=== PATIENT | female | born 1955 | race Caucasian/White ===

== ENCOUNTER → 2017-08-31 | Outpatient (CLI) | payer MEDICARE, MEDICAID ==
[~2017-08-31] MED LIST: DICL50TA6 PO; GABA-488 PO; HYDR-3812 PO; ONDA4TAB8 SL; VALA1000 PO
--- NOTE | 2017-09-01 21:04 | Diagnostic Imaging Report ---
Bilateral screening mammogram 2D views with tomosynthesis. The current study was also evaluated with a Computer Aided Detection (CAD) system. INDICATION: Screening. No current complaints stated on the questionnaire. COMPARISON: 06/10/2016. FINDINGS: The breasts are composed of scattered fibroglandular densities. Scattered punctate calcifications are seen. There is no mass, architectural distortion, or suspicious cluster of calcifications. Allowing for technique and positional differences, no suspicious change is seen. IMPRESSION: No significant change. ACR BI-RADS Category 2: Benign findings. Result letter will be mailed to the patient. Note: At least 10% of breast cancer is not imaged by mammography. Dictated by: Dictated on workstation # [id number]
== END ==
LOC: RAD 15:10
PROVIDERS: ATTEND Family Medicine
DX: Z12.31 Encounter for screening mammogram for malignant neoplasm of breast (principal)
CPT/HCPCS: 77067

== ENCOUNTER → 2017-09-04 | Outpatient (CLI) | payer MEDICARE, MEDICAID ==
--- NOTE | 2017-09-04 11:50 | Diagnostic Imaging Report ---
Ultrasound of the neck. INDICATION: Left submandibular mass. FINDINGS: Adjacent to the left submandibular gland which appears normal, there is a lymph node measuring 2.1 x 1.5 CM on the left side. The preserved fatty hilum is in favor of a benign inflammatory or infectious etiology. No fluid collection or abscess. IMPRESSION: Nonspecific mildly enlarged lymph node with preserved fatty hilum adjacent to the left submandibular gland probably reactive. Dictated by: Dictated on workstation # [id number]
== END ==
LOC: RAD 10:40
PROVIDERS: ATTEND Family Medicine
DX: R59.0 Localized enlarged lymph nodes (principal)
CPT/HCPCS: 76536

== ENCOUNTER → 2018-01-11 | Outpatient (CLI) | payer MEDICARE, MEDICAID ==
[~2018-01-11] MED LIST changes: +ACHD5005 PO; +GADOBUTROL 7.5 MMOL/7.5 ML (GADAVIST) VIAL IV ONE; -HYDR-3812 PO
[2018-01-11 15:12] LABS: HEMOGLOBIN 13.8 G/DL (11.5-16.0); MEAN PLATELET VOLUME 9.3 FL (7.4-10.4); RED BLOOD COUNT 4.13 10^6/uL (4.35-5.85); RED CELL DISTRIBUTION WIDTH 13.5 % (10.0-14.5); WHITE BLOOD COUNT 5.7 10^3/uL (4.3-11.0)
[2018-01-11 15:34] LABS: CREATININE SERUM 0.97 MG/DL (0.60-1.30)
--- NOTE | 2018-01-12 13:12 | Diagnostic Imaging Report ---
CLINICAL INDICATION: Patient has history of Graves' disease. Patient complains of chronic dry eye, double vision, swelling to right eye. Patient has history decompression of both eyes several years ago. EXAM: MRI of the brain and orbits performed without and with 6 cc of Gadavist IV contrast. Sequences include axial DWI, ADC map, axial T2, axial FLAIR, axial T1, axial gradient-echo, coronal T2 thin fat-sat, axial T2 thin, axial T1 thin, coronal T1 thin, axial T1 thin fat-sat post IV contrast, coronal T1 thin fat-sat post IV contrast, right and left sagittal T1 fat-sat thin post IV contrast, axial T1 post IV contrast whole brain, coronal T1 fat-sat post IV contrast whole brain, and sagittal T1 post IV contrast whole brain. COMPARISON: None. FINDINGS: There is no evidence of acute cerebral infarct, intracranial hemorrhage, or gross mass effect. There are a few small focal areas of high T2 signal white matter changes within both cerebral hemispheres, likely representing chronic small vessel ischemic disease. The brain parenchymal volume appears appropriate for patient's age. There is normal salazar-white matter distinction. There is no significant midline shift or herniation. The [place] vascular structures show no gross abnormality as visualized. The pituitary gland, sella, and suprasellar regions are unremarkable as visualized. There is no evidence of hydrocephalus. The basal cisterns are unremarkable. There are orbital decompression surgery changes with resection of the bilateral lateral orbital mckeon. There is also note of medial concavity configuration of the medial orbital mckeon with extension of the bilateral medial rectus muscles and intraorbital fat. These may also be from postop changes or from trauma. There is note of some fatty infiltration of the bilateral extraocular muscles. There is mild prominence of the bilateral medial rectus muscles. There is mild non mass-like enhancement involving the bilateral extraocular muscles. There is prominence of the bilateral intraorbital optic nerve dural sheaths. There is no gross MRI evidence of papilledema, although this would be better evaluated clinically. There is no mass-like enhancement of the orbits or globes. Otherwise, the remainder of the skull and extracranial soft tissues are unremarkable. There is [id number] peripheral mucosal thickening involving both maxillary sinuses, moderate mucosal thickening involving the ethmoid sinus, and mild mucosal thickening involving the frontal sinus and sphenoid sinus. Temporal bones show no significant abnormality. IMPRESSION: 1: There are surgical orbital decompression changes seen bilaterally. 2: There is nonspecific mild enhancement in subtle high T2 signal involving the bilateral extraocular muscles which may be due to inflammatory process. There is also mild enlargement of the bilateral medial extraocular rectus muscles. There is prominent intraorbital fat seen. All of these findings may be related to patient's history of Graves' disease. Given that these findings are bilateral, pseudotumor is suspected to be unlikely. These findings should be compared to prior MRI, if available. 3: Diffuse paranasal sinusitis. 4: Mild age-related brain parenchymal changes. Dictated by: Dictated on workstation # [id number]
== END ==
LOC: RAD 14:56
PROVIDERS: ATTEND Optometrist
DX: H05.241 Constant exophthalmos, right eye (principal); H50.89 Other specified strabismus; H04.121 Dry eye syndrome of right lacrimal gland; J32.8 Other chronic sinusitis; Z86.39 Personal history of other endocrine, nutritional and metabolic disease; Z98.890 Other specified postprocedural states
CPT/HCPCS: 36415; 70553; 82565; 84520; 85027

== ENCOUNTER 2018-03-31 05:33 | Outpatient (CLI) | payer MEDICARE, MEDICAID ==
[~2018-03-31] VITALS: Ht 167.6 cm; Wt 61.7 kg
[~2018-03-31 05:33] MED LIST changes: -GADOBUTROL 7.5 MMOL/7.5 ML (GADAVIST) VIAL IV ONE
[2018-04-01] MEDS ORDERED: ARPZ30T PO (10:56)
[2018-04-01] MEDS ORDERED: CARI350T PO (10:56)
[2018-04-01] MEDS ORDERED: ALPR2TAB6 PO (10:56)
[2018-04-01] MEDS ORDERED: LEVO100T7 PO (10:56)
[2018-04-01] MEDS ORDERED: ASPI-586 PO (10:56)
[2018-04-01] MEDS ORDERED: ARIP10TA10 PO (10:56)
[2018-04-01] MEDS ORDERED: ESCI10TA PO (10:56)
== END 2018-04-01 11:00 ==
LOC: PREOP 05:33
PROVIDERS: ATTEND Specialist
DX: Z01.818 Encounter for other preprocedural examination (principal)

== ENCOUNTER 2018-04-21 05:34 | Outpatient (CLI) | payer MEDICARE, MEDICAID ==
[~2018-04-21] VITALS: Ht 167.6 cm; Wt 61.7 kg
[~2018-04-21 05:34] MED LIST changes: +ALPR2TAB6 PO; +ARIP10TA10 PO; +ARPZ30T PO; +ASPI-586 PO; +CARI350T PO; +ESCI10TA PO; +LEVO100T7 PO
== END 2018-04-21 12:11 ==
LOC: PREOP 05:34
PROVIDERS: ATTEND Specialist
DX: Z01.818 Encounter for other preprocedural examination (principal)

== ENCOUNTER 2018-04-23 05:48 | Day surgery (SDC) | payer MEDICARE, MEDICAID ==
[~2018-04-23] VITALS: Ht 167.6 cm; Wt 61.7 kg
[2018-04-23] MEDS ORDERED: TIMOLOL MALEATE 0.5% 5 ML (TIMOPTIC) BTL OU PRN (06:15)
[2018-04-23] MEDS ORDERED: EPINEPHrine INJECTION 1 MG/ML AMP INJ ONE (06:15)
[2018-04-23] MEDS ORDERED: POVIDONE (BETADINE) OPHTH SOLN 5% 30 ML OP ONE (06:15)
[2018-04-23] MEDS ORDERED: LIDOCAINE PF 1% 2 ML AMP IR PRN (06:15)
[2018-04-23] MEDS ORDERED: VANCOMYCIN/BSS (COMPOUNDED) 10 MG/ML SYR OP ONE (06:15)
[2018-04-23] MEDS: TETRACAINE 0.5% OPHTH SOLN 4 ML BTL (SINGLE DOSE ONLY) OU PRN ×4 (06:18→06:35)
[2018-04-23 06:24] VITALS: BP 121/49
[2018-04-23] MEDS: CYCLOPENTOLATE 1% (CYCLOGYL) 2 ML DROPS OP SCH ×3 (06:27→06:35)
[2018-04-23] MEDS: PHENYLEPHRINE 10% OPHTH (NEO-SYN) 5 ML BTL OU SCH ×3 (06:27→06:35)
--- NOTE | 2018-04-23 06:52 | Ophthalmologist Pre-Op Note ---
Pre-Operative Progress Note H&P Reviewed The H&P was reviewed, patient examined and no changes noted. Date H&P Reviewed: Apr 23, 2018 Time H&P Reviewed: 06:52 Pre-Op Dx Cataract, Left Eye KERI FERNANDEZ MD Apr 23, 2018 06:52
[2018-04-23] MEDS ORDERED: MIDAZOLAM 2 MG/2 ML (VERSED) VIAL ONE (07:08)
--- NOTE | 2018-04-23 07:30 | Ophthalmology Operative Report ---
Cataract removal/placement IOL PREOPERATIVE DIAGNOSIS: Cataract Left Eye POSTOPERATIVE DIAGNOSIS: Cataract Left Eye PROCEDURE: Cataract removal and placement of posterior chamber implant, left eye SURGEON: Roscoe Fernandez ANESTHESIA: Topical with sedation COMPLICATIONS: None ESTIMATED BLOOD LOSS: Minimal DESCRIPTION OF PROCEDURE: After proper informed consent was obtained, the patient, a 63 female, was taken to the Operating Room and the left eye was anesthetized with tetracaine. The left eye was then prepped and draped in the usual manner. A wire lid speculum was placed. A paracentesis was made at the left hand position. Preservative free lidocaine was injected into the anterior chamber followed by viscoelastic. A clear corneal incision was made in the temporal position. A capsulorrhexis was preformed and the central nuclear and cortical material were removed. The posterior capsule was polished and an Sharad 22.5 [id number] IOL was placed into the capsular bag. The residual viscoelastic was aspirated and balanced saline solution was injected into the anterior chamber. 0.1 ml of Vancomycin (1mg/0.1ml ) was injected into the anterior chamber. The wound was checked and found to be water tight. The patient tolerated the procedure well without complications. ROSCOE FERNANDEZ MD Apr 23, 2018 07:30
[2018-04-23 07:40] VITALS: BP 142/57
--- NOTE | 2018-04-23 10:29 | Anesthesia-General Post-Op ---
MAC Patient Condition Mental Status/LOC: Same as Preop Cardiovascular: Satisfactory Nausea/Vomiting: Absent Respiratory: Satisfactory Pain: Controlled Complications: Absent Post Op Complications Complications None Follow Up Care/Instructions Patient Instructions None needed. Anesthesiology Discharge Order Discharge Order Patient is doing well, no complaints, stable vital signs, no apparent adverse anesthesia problems. No complications reported per nursing. KEYLA CHAVEZ CRNA Apr 23, 2018 10:29
== END 2018-04-23 07:40 | disposition home or self-care (01) ==
LOC: SDC 05:48
PROVIDERS: ATTEND Specialist
DX: H26.9 Unspecified cataract (principal); Z87.891 Personal history of nicotine dependence; Z79.82 Long term (current) use of aspirin

== ENCOUNTER → 2018-05-20 | Outpatient (CLI) | payer MEDICARE, MEDICAID ==
--- NOTE | 2018-05-20 10:56 | Diagnostic Imaging Report ---
INDICATION: Osteoporosis screening. Bone marrow analysis of the lumbar spine and both hips was performed. The bone mineral density of lumbar spine from L2-L4 is 0.920 with a T score -2.3. Bone mineral density left femoral neck is 0.682 with T score -2.6. Bone mineral density right femoral neck is 0.778 with a T score -1.9. IMPRESSION: Osteopenia of the lumbar spine and right femoral neck with osteoporosis of the left femoral neck. Dictated by: Dictated on workstation # [id number]
== END ==
LOC: RAD 09:33
PROVIDERS: ATTEND Internal Medicine Endocrinology, Diabetes & Metabolism
DX: Z13.820 Encounter for screening for osteoporosis (principal); M81.0 Age-related osteoporosis without current pathological fracture; M85.88 Other specified disorders of bone density and structure, other site
CPT/HCPCS: 77080

== ENCOUNTER 2019-09-29 14:30 | Outpatient (RCR) | payer MEDICARE, MEDICAID | END 2019-09-29 15:20 | disposition home or self-care (01) | PROVIDERS: ATTEND Internal Medicine Endocrinology, Diabetes & Metabolism | DX: G89.29 Other chronic pain (principal); M54.9 Dorsalgia, unspecified; M81.0 Age-related osteoporosis without current pathological fracture; R29.898 Other symptoms and signs involving the musculoskeletal system ==

== ENCOUNTER → 2019-10-10 | Outpatient (CLI) | payer MEDICARE, MEDICAID ==
--- NOTE | 2019-10-10 15:02 | Diagnostic Imaging Report ---
INDICATION: Left hip pain. COMPARISON: None. FINDINGS: Three views of the sacrum and sacroiliac joint spaces were obtained and show no fractures, dislocations, or other acute bony abnormalities. Joint spaces are appropriate. Note is made however of sclerotic change to the inferior margins of the left sacrum and iliac at the SI joint on the left. This is best visualized on the oblique view. There may be minimal or early sclerotic changes of the right iliac bone as well. These findings were present on CT pelvis dated 06/17/2016. IMPRESSION: 1. Findings suggestive of bilateral sacroiliitis, left greater than right. 2. No evidence of acute fracture or dislocation. Dictated by: Dictated on workstation # [id number]
--- NOTE | 2019-10-10 15:04 | Diagnostic Imaging Report ---
INDICATION: Left hip pain. COMPARISON: None. FINDINGS: Two radiographic views of the left hip were obtained and show no evidence of acute fracture or dislocation. No unexpected radiopaque foreign bodies are identified. The visualized pelvic osseous structures and the SI joints demonstrate no acute fracture or dislocation. There is no bone destruction or radiopaque foreign body. The surrounding soft tissue structures are unremarkable. IMPRESSION: No acute fracture or dislocation in the left hip. Dictated by: Dictated on workstation # [id number]
--- NOTE | 2019-10-11 10:46 | Diagnostic Imaging Report ---
Digital mammogram. Bilateral screening. This study was compared to the prior exams of 08/31/2017, 06/10/2016 and 10/25/2013. At this time there are no current complaints. The current study was also evaluated with a Computer Aided Detection (CAD) system. FINDINGS: The fibroglandular tissue in both breasts is heterogeneously dense. This does limit the sensitivity of this exam. Overall, there does not appear to have been any significant change when compared to the prior study. No primary or secondary sign of malignancy is noted. IMPRESSION: There is no radiographic evidence for malignancy. ACR BI-RADS Category 1: Negative. Result letter will be mailed to the patient. Note: At least 10% of breast cancer is not imaged by mammography. Dictated by: Dictated on workstation # [id number]
== END ==
LOC: RAD 13:32
PROVIDERS: ATTEND Family Medicine
DX: Z12.31 Encounter for screening mammogram for malignant neoplasm of breast (principal); M25.552 Pain in left hip; M53.3 Sacrococcygeal disorders, not elsewhere classified
CPT/HCPCS: 72202; 73502; 77067

== ENCOUNTER → 2019-12-09 | Outpatient (CLI) | payer MEDICAID, OTHER ==
--- NOTE | 2019-12-09 17:10 | Diagnostic Imaging Report ---
PROCEDURE: MRI lumbar spine without contrast. TECHNIQUE: Multiplanar, multisequence MRI of the lumbar spine was performed without contrast. INDICATION: Chronic low back pain. COMPARISON: CT abdomen and pelvis on 06/17/2016. FINDINGS: 5 lumbar type vertebral bodies are visualized with the last well-formed disc space designated L5-S1. No acute fracture or dislocation is seen in the lumbar spine. There is left convexity curvature of the lumbar spine centered at the L2 level. Vertebral body heights are well-maintained. Endplate degenerative changes are present at L1-L2 and L2-L3. The conus terminates at the T12-L1 level. No masses are seen associated with the conus or nerve roots of the cauda equina. No epidural collections are identified. Multilevel degenerative changes are seen in the lumbar spine with disc bulges, facet hypertrophy, and buckling of the ligamentum flavum. T12-L1: No significant spinal canal or foraminal stenosis. L1-L2: Broad-based disc bulge, facet hypertrophy, and buckling of ligamentum flavum results in no significant spinal canal narrowing and moderate right and no left foraminal stenosis. L2-L3: Disc desiccation with broad-based disc bulge, facet hypertrophy, and buckling of ligamentum flavum results in moderate to severe right and no left foraminal stenosis and no significant spinal canal stenosis. L3-L4: Broad-based disc bulge, facet hypertrophy, and buckling of ligamentum flavum results in mild to moderate spinal canal stenosis and moderate bilateral foraminal stenosis. L4-L5: Broad-based disc bulge, facet hypertrophy, and buckling of the ligamentum flavum results in no significant spinal canal stenosis and moderate to severe left and mild right foraminal stenosis. L5-S1: Broad-based disc bulge, facet hypertrophy, and buckling of the ligamentum flavum results in no significant spinal canal stenosis and mild right and moderate left foraminal stenosis. Paravertebral soft tissues are unremarkable. IMPRESSION: 1. No acute fracture or dislocation in the lumbar spine. 2. Multilevel degenerative changes in the lumbar spine, greatest at L3-L4. Dictated by: Dictated on workstation # [id number]
== END ==
LOC: RAD 13:52
PROVIDERS: ATTEND Physician Assistant
DX: M47.816 Spondylosis without myelopathy or radiculopathy, lumbar region (principal)
CPT/HCPCS: 72148

== ENCOUNTER → 2020-01-05 | Outpatient (CLI) | payer MEDICARE ==
--- NOTE | 2020-01-05 14:49 | Diagnostic Imaging Report ---
CLINICAL INDICATION: Right eye is bulging out. Patient has history of Graves' disease. Planning on surgery on this right eye. EXAM: CT scan of the orbits performed without IV contrast with coronal and sagittal reformatted images. COMPARISON: None. FINDINGS: There is slight ill-defined and asymmetry appearance of the extraocular muscles bilaterally with the lateral rectus muscles being the smallest. The tendons are relatively spared. There is no significant masslike enhancement. There is prominence of the retro-bulbar and regina-orbital fat with associated bilateral exophthalmos. Besides the orbital fat, there is no other space-occupying mass within the retro-bulbar region. Limited visualization of intracranial structures are unremarkable. There is mild mucosal thickening involving both maxillary sinuses. There is medial concavity of the medial orbital mckeon. IMPRESSION: 1: There is ill-defined and asymmetric appearance of the bilateral extraocular muscles with the lateral rectus muscles being the smallest. There is prominence of the intraorbital and periorbital fat with exophthalmos noted. Given patient's history, this is most consistent with thyroid ophthalmopathy. 2: Mild paranasal sinus disease. Dictated by: Dictated on workstation # [id number]
== END ==
LOC: RAD 13:42
DX: H05.89 Other disorders of orbit (principal); J32.8 Other chronic sinusitis
CPT/HCPCS: 70480

== ENCOUNTER → 2020-05-22 | Outpatient (CLI) | payer MEDICARE, MEDICAID ==
[~2020-05-22] MED LIST changes: -VALA1000 PO; +VALA10007 PO
--- NOTE | 2020-05-22 14:28 | Diagnostic Imaging Report ---
INDICATION: 65-year-old female, postmenopausal. Screening for osteoporosis. COMPARISON: May 20, 2018. FINDINGS: AP Spine L1-L4: [BMD (g/cm2): 0.829] [T-Score: -3.1] [Z-Score: -1.2] [BMD Previous: 0.920] [BMD % Change: -9.9] LT Hip Neck: [BMD (g/cm2): 0.652] [T-Score: -2.8] [Z-Score: -1.1] LT Hip Total: [BMD (g/cm2):0.635] [T-Score:-3.0] [Z-Score: -1.5] [BMD Previous: 0.660] [BMD % Change: -3.8] RT Hip Neck: [BMD (g/cm2):0.745] [T-Score:-2.1] [Z-Score:-0.4] RT Hip Total: [BMD (g/cm2):0.659] [T-score:-2.8] [Z-Score:-1.3] [BMD Previous:0.680] [BMD % Change:-3.1] *Indicates significant change from prior examination based on 95% confidence level. World Health Organization criteria for BMD interpretation classify patients as Normal (T-score at or above -1.0), Osteopenic (T-score between -1.0 and -2.5) or Osteoporotic (T-score at or below -2.5). LIMITATIONS AND MODIFICATION: None. IMPRESSION: 1. Osteoporosis. 2. No significant change in bone mineral density since prior examination. 3. See below National Osteoporosis Foundation guidelines on when to potentially initiate pharmacologic therapy. Based on the National Osteoporosis Foundation Guidelines, pharmacologic treatment should be initiated in any of the following, unless clinical conditions suggest otherwise: * Any patient with prior fragility fracture of the hip or vertebrae. A spine fracture indicates 5X risk for subsequent spine fracture and 2X risk for subsequent hip fracture. * Osteoporosis (T-score <-2.5). * Postmenopausal women and men age 50 and older with low bone mass/osteopenia (T-score between -1.0 and -2.5) by DXA and 10-year major osteoporotic fracture greater than 20% or a 10-year probability of hip fracture greater than 3%. These fracture risks are supplied above in the FRAX score, if applicable. * Clinician judgement and/or patient preferences may indicate treatment for people with 10-year fracture probabilities above or below these levels. Dictated by: Dictated on workstation # [id number]
== END ==
LOC: RAD 10:13
PROVIDERS: ATTEND Internal Medicine Endocrinology, Diabetes & Metabolism
DX: Z13.820 Encounter for screening for osteoporosis (principal); M81.0 Age-related osteoporosis without current pathological fracture; Z78.0 Asymptomatic menopausal state
CPT/HCPCS: 77080

== ENCOUNTER 2020-06-05 05:53 | Outpatient (RCR) | payer MEDICARE, MEDICAID ==
[~2020-06-05] VITALS: Ht 172 cm; Wt 61.3 kg
== END 2020-06-05 10:49 | disposition home or self-care (01) ==
LOC: PREOP 05:53
PROVIDERS: ATTEND Specialist
DX: Z01.818 Encounter for other preprocedural examination (principal)

== ENCOUNTER 2020-06-08 06:33 | Day surgery (SDC) | payer MEDICARE, MEDICAID ==
[~2020-06-08] VITALS: Ht 172 cm; Wt 61.3 kg
--- OUTSIDE RECORDS SUMMARY | 2020-06-08 06:37 | XMS REPORT | Clinical Summary ---
Author Author [facility] Organization [facility] Address Unknown Phone Unavailable Care Team Providers Care Billet Header Name Role Phone Huber Velez PCP Allergies Comments Active Allergy Reactions Severity Noted Date Swelling in wrists Prednisone 02/10/2019 Medications End Date Status Medication Sig Dispensed Refills Start Date Active ARIPiprazole (ABILIFY) 30 Take 40 mg by 0 MG tablet mouth daily. Active escitalopram oxalate Take 20 mg by 0 (LEXAPRO) 20 mg tablet mouth daily. Active levothyroxine 100 mcg cap Take 100 mcg 0 by mouth daily. Active ALPRAZolam (XANAX) 2 MG Take 2 mg by 0 tablet mouth 2 (two) times a day. Active baclofen (LIORESAL) 10 MG Take 10 mg by 0 tabletIndications: muscle mouth 2 (two) spasticity of spinal times a day. origin Active traZODone (DESYREL) 100 Take 100 mg 0 MG tablet by mouth nightly. Active therapeutic multivitamin Take 1 tablet 0 (THERAGRAN) tablet by mouth daily. Active calcium phosphate Take 5,000 0 trib/vit D3 (CITRACAL + Units by D3, CALCIUM PHOS, ORAL) mouth daily. Active selenium 200 mcg Tab Take 200 mcg 0 by mouth daily. Active multiple vitamins B Take 1 tablet 0 complex with C by mouth (NEPHRO-YESI) 0.8 mg every tablet evening. Active lifitegrast (XIIDRA) 5 % Administer to 0 Dpet eye 2 (two) times a day. Active HYDROcodone-acetaminophen Take 1 tablet 20 tablet 0 (NORCO) 5-325 mg per by mouth 9 tablet every 6 (six) hours as needed for pain. Max Daily Dose: 4 tablets Active diclofenac (VOLTAREN) 50 Take 50 mg by 0 01/31 MG EC tablet mouth 2 (two) 9 times a day. Active biotin 1,000 mcg Chew Chew 5,000 0 mcg daily. Active HYDROcodone-acetaminophen Take 1 tablet 20 tablet 0 (NORCO) 5-325 mg per by mouth 9 tablet every 6 (six) hours as needed for pain. Max Daily Dose: 4 tablets Active Problems Not on file Social History Date Tobacco Use Types Packs/Day Years Used Current Every Day Smoker Electronic 30 Cigarettes Smokeless Tobacco: Never Used Drinks/Week oz/Week Comments Alcohol Use No Sex Assigned at Date Recorded Not on file Industry Job Start Date Occupation Not on file Not on file Not on file Travel End Travel History Travel Start No recent travel history available. Last Filed Vital Signs Reading Time Taken Comments Vital Sign 109/52 03/25/2019 10:00 AM CDT Blood Pressure 58 03/25/2019 10:00 AM CDT Pulse 36.1 C (97 F) 03/25/2019 10:01 AM CDT Temperature 17 03/25/2019 10:00 AM CDT Respiratory Rate 95% 03/25/2019 10:00 AM CDT Oxygen Saturation - - Inhaled Oxygen Concentration 61.7 kg (136 lb) 03/14/2019 2:25 PM CDT Weight 167.6 cm (5' 6") 03/14/2019 2:25 PM CDT Height 21.95 03/14/2019 2:25 PM CDT Body Mass Index Plan of Treatment Not on file Implants Device Identifier Shelf Expiration Date Model / Serial / L ot Implanted Type Area Manufactur er 01/13/2022 [id number] / / [id number] Implant Mesh Enduragen 1cm X 4cm X Non-Tissue Right: Eye AMY 1.0mm Porcine Collagen [id number] - Implant CMF [id number] Implanted: Qty: 1 on 02/25/2019 by Jhony Hamilton MD at [facility] 01/13/2022 [id number] / / [id number] Implant Mesh Enduragen 1cm X 4cm X Non-Tissue Left: Eyeli d AMY 1.0mm Porcine Collagen [id number] - Implant CMF [id number] Implanted: Qty: 1 on 03/25/2019 by Jhony Hamilton MD at [facility] Results Not on filefrom Last 3 Months Insurance Type Payer Benefit Subscriber ID Effective Phone Address Plan / Dates Group Medicare MEDICARE MEDICARE xxxxxxxxxxx 2001-P [place], [place] x[place] 2019-[id number] Advance Directives For more information, please contact: [phone] Patient Title Insurance Examiner Explanation Type Date Recorded Health Care Directive
--- OUTSIDE RECORDS SUMMARY | 2020-06-08 06:37 | XMS REPORT | Encounter Summary ---
Author Author [facility] Organization [facility] Address Unknown Phone Unavailable Care Team Providers Care Dental Practitioner Name Role Phone Agustin Huber PCP Reason for Visit * Auth/Cert Referred By Contact Referred To Contact Status Reason Specialty Diagnoses / Procedures Diagnoses LEFT EYELID RETRACTION H02.535 P rocedures CO CORRECT LID RETRACTN LEFT LOWER LID RETRACTION REPAIR Encounter Details Care Team Description [place] [address] [place] [address] [phone] LEFT LOWER LID RETRACTION REPAIR, PLACEM ENT IF ALLODERM SPACER GRAFT, TEMPORARY SUTURE TARSORAPPHY 03/25/2019 [place] [address] Social History Date Tobacco Use Types Packs/Day Years Used Current Every Day Smoker Electronic 30 Cigarettes Smokeless Tobacco: Never Used Drinks/Week oz/Week Comments Alcohol Use No Sex Assigned at Date Recorded Not on file Industry Job Start Date Occupation Not on file Not on file Not on file Travel End Travel History Travel Start No recent travel history available. documented as of this encounter Last Filed Vital Signs Reading Time Taken [...] 03/14/2019 2:25 PM CDT Body Mass Index documented in this encounter Discharge Instructions * Pre-Procedure Instructions* Katie Tejeda RN - 03/14/2019 2:19 PM CDT Current Outpatient Prescriptions Medication Sig Note: biotin 1,000 mcg Chew Chew 5,000 mg daily. Note:HOLD 3-3 AND ON ALPRAZolam (XANAX) 2 MG tablet Take 2 mg by mouth 2 (two) times a day. Note: DOS ARIPiprazole (ABILIFY) 30 MG tablet Take 40 mg by mouth daily. Note:DOS baclofen (LIORESAL) 10 MG tablet Take 10 mg by mouth 2 (two) times a day. N ote:DOS calcium phosphate trib/vit D3 (CITRACAL + D3, CALCIUM PHOS, ORAL) Take 5,000 Units by mouth daily. Note:HOLD FROM 3-3 diclofenac (VOLTAREN) 50 MG EC tablet Take 50 mg by mouth 2 (two) times a da y. Note:HOLD FROM 3-3 escitalopram oxalate (LEXAPRO) 20 mg tablet Take 20 mg by mouth daily. Note: DOS HYDROcodone-acetaminophen (NORCO) 5-325 mg per tablet Take 1 tablet by mouth every 6 (six) hours as needed for pain. Max Daily Dose: 4 tablets Note: levothyroxine 100 mcg cap Take 100 mcg by mouth daily. Note:DOS lifitegrast (XIIDRA) 5 % Dpet Administer to eye 2 (two) times a day. Note: multiple vitamins B complex with C (NEPHRO-YESI) 0.8 mg tablet Take 1 tablet by mouth every evening. Note:HOLD FROM 3-3 selenium 200 mcg Tab Take 200 mcg by mouth daily. Note:" therapeutic multivitamin (THERAGRAN) tablet Take 1 tablet by mouth daily. No te:" traZODone (DESYREL) 100 MG tablet Take 100 mg by mouth nightly. Note:PM * Additional Instructions* Jhony Hamilton MD - 03/25/2019 Post-Operative Instructions Jhony Hamilton M.D. 1. You will be kept in the recovery area for about 30 minutes after surgery. Ic ed gauze compresses will be applied to your eye(s) if there is no eye patch plac ed in surgery. Continue this at home until you go to bed tonight and then again in the morning until noon. 2. Keep your head elevated on at least 2 pillows when you sleep the first night after surgery. 3. Avoid strenuous activity; no bending from the waist, straining or stooping fo r an extended period of time. Do not lift anything over 10 pounds. Maintain th maura restrictions for 2 days. 4. Do not remove the eye patch until follow up. 5. Use Tobradex eye ointment. Apply to the incisions 2 times a day. Apply the ointment to the eye(s) at bedtime. After patch is removed 6. Use Tylenol or similar medication for mild pain (NO ASPIRIN or ASPIRIN PRODUC TS). 7. Use Levering for more severe pain. 8. Your first office follow up visit is in 1-[address] Valderrama's office . Some degree of discomfort is natural and expected after surgery. There may be a small amount of bloody drainage for the first 24-48 hours. Call immediately if you notice a sudden change in your vision, severe bleeding, or a dramatic change in the amount of bruising. If you have other questions (even if you think they may be minor or foolish) please call my office. The office telephone is answered 24 hours a day- [phone] documented in this encounter Medications at Time of Discharge Start Date End Date Medication Sig Dispensed Refills ALPRAZolam (XANAX) 2 MG Take 2 mg by 0 tablet mouth 2 (two) times a day. ARIPiprazole (ABILIFY) 30 Take 40 mg by 0 MG tablet mouth daily. baclofen (LIORESAL) 10 MG Take 10 mg by 0 tabletIndications: muscle mouth 2 (two) spasticity of spinal times a day. origin biotin 1,000 mcg Chew Chew 5,000 0 mcg daily. calcium phosphate Take 5,000 0 trib/vit D3 (CITRACAL + Units by D3, CALCIUM PHOS, ORAL) mouth daily. 01/31/2019 diclofenac (VOLTAREN) 50 Take 50 mg by 0 MG EC tablet mouth 2 (two) times a day. escitalopram oxalate Take 20 mg by 0 (LEXAPRO) 20 mg tablet mouth daily. 02/25/2019 HYDROcodone-acetaminophen Take 1 tablet 20 tablet 0 (NORCO) 5-325 mg per by mouth tablet every 6 (six) hours as needed for pain. Max Daily Dose: 4 tablets 03/25/2019 HYDROcodone-acetaminophen Take 1 tablet 20 tablet 0 (NORCO) 5-325 mg per by mouth tablet every 6 (six) hours as needed for pain. Max Daily Dose: 4 tablets levothyroxine 100 mcg cap Take 100 mcg 0 by mouth daily. lifitegrast (XIIDRA) 5 % Administer to 0 Dpet eye 2 (two) times a day. multiple vitamins B Take 1 tablet 0 complex with C by mouth (NEPHRO-YESI) 0.8 mg every tablet evening. selenium 200 mcg Tab Take 200 mcg 0 by mouth daily. therapeutic multivitamin Take 1 tablet 0 (THERAGRAN) tablet by mouth daily. traZODone (DESYREL) 100 Take 100 mg 0 MG tablet by mouth nightly. documented as of this encounter H&P Notes * Jhony Hamilton MD - 03/25/2019 8:18 AM CDT [facility] Surgical Services History and Physical PATIENT NAME: All Webb DATE: 03/25/2019 AGE: 64 y.o. : 1955 HISTORY OF PRESENT ILLNESS: 64 year old female with left lower eyelid retraction, here for repair. PAST MEDICAL HISTORY: Past Medical History: Diagnosis Date Anxiety Cataract Depression Graves disease Hypothyroidism Osteoarthritis Peptic ulceration PAST SURGICAL HISTORY: Past Surgical History: Procedure Laterality Date BLEPHARORRHAPHY Right 02/25/2019 Procedure: SUTURE TARSORRHAPHY; Surgeon: Jhony Hamilton MD; Location: [facility] Main OR; Service: Ophthalmology; Laterality: Right; CATARACT EXTRACTION, BILATERAL DENTAL SURGERY EXCISION, LESION, SKIN, BROW, WITH SKIN GRAFT APPLICATION Right 02/25/2019 Procedure: RIGHT LOWER LID RETRACTION REPAIR, SKIN SUBSTITUTE GRAFT (ENDURAGEN) ,; Surgeon: Jhony Hamilton MD; Location: [facility] Main OR; Service: Ophthalmo logy; Laterality: Right; EYE SURGERY decompression bilat HYSTERECTOMY OVARIAN CYST SURGERY FAMILY HISTORY: History reviewed. No pertinent family history. SOCIAL HISTORY: Social History Social History Marital status: Spouse name: N/A Number of children: N/A Years of education: N/A Occupational History Not on file. Social History Main Topics Smoking status: Current Every Day Smoker Years: 30.00 Types: Electronic Cigarettes Smokeless tobacco: Never Used Alcohol use No Drug use: No Sexual activity: Not on file Other Topics Concern Not on file Social History Narrative No narrative on file ALLERGIES: Prednisone PRIOR TO ADMISSION MEDICATIONS: Prescriptions Prior to Admission Medication Sig Dispense Refill Last Dose biotin 1,000 mcg Chew Chew 5,000 mg daily. 03/18/2019 ALPRAZolam (XANAX) 2 MG tablet Take 2 mg by mouth 2 (two) times a day. 03/24 ARIPiprazole (ABILIFY) 30 MG tablet Take 40 mg by mouth daily. 03/25/2019 a t 0530 baclofen (LIORESAL) 10 MG tablet Take 10 mg by mouth 2 (two) times a day. 03/24/2019 calcium phosphate trib/vit D3 (CITRACAL + D3, CALCIUM PHOS, ORAL) Take 5,000 Units by mouth daily. 03/18/2019 diclofenac (VOLTAREN) 50 MG EC tablet Take 50 mg by mouth 2 (two) times a da y. 03/18/2019 escitalopram oxalate (LEXAPRO) 20 mg tablet Take 20 mg by mouth daily. 03/16 at 0530 HYDROcodone-acetaminophen (NORCO) 5-325 mg per tablet Take 1 tablet by mouth every 6 (six) hours as needed for pain. Max Daily Dose: 4 tablets 20 tablet 0 levothyroxine 100 mcg cap Take 100 mcg by mouth daily. 03/25/2019 at 0530 lifitegrast (XIIDRA) 5 % Dpet Administer to eye 2 (two) times a day. More than a month at Unknown time multiple vitamins B complex with C (NEPHRO-YESI) 0.8 mg tablet Take 1 tablet by mouth every evening. 03/18/2019 selenium 200 mcg Tab Take 200 mcg by mouth daily. 03/18/2019 therapeutic multivitamin (THERAGRAN) tablet Take 1 tablet by mouth daily. 03/18/2019 traZODone (DESYREL) 100 MG tablet Take 100 mg by mouth nightly. 03/22/2019 REVIEW OF SYSTEMS: A 10-point Review of Systems was performed and is negative except for those item s mentioned in the HPI. PHYSICAL EXAM: Blood Pressure: BP: (!) 143/72 Pulse: Pulse: (!) 57 Temperature: Temp: 36.9 C (98.4 F) Respirations: Resp: 14 Admission Weight: Weight: 61.7 kg (136 lb) O2 Saturation: SpO2: 97 % Today's Weight: Weight: 61.7 kg (136 lb) BMI: Body mass index is 21.95 kg/m. General Appearance: Alert, cooperative, no distress Neurologic: Cranial nerves grossly intact Neck: Supple, symmetrical, trachea midline Respiratory: Lungs clear to auscultation bilaterally Heart: Regular rate and rhythm, S1 and S2 normal, no murmur Abdomen: Soft, non-tender, bowel sounds active all four quadrants, no masses, no organomegaly Extremities: Extremities normal, no edema Skin: No rashes or lesions Psychiatric: Normal appearing mood and affect LAB RESULTS: No results for input(s): WBC, HGB, HCT, PLT in the last 72 hours. No results for input(s): NA, K, CL, CO2, BUN, CREAT, CALCIUM, GLUCPOC, ALBUMIN, PROT, BILITOTAL, ALKPHOS, ALT, AST, GLU, PHOS, MG, LIPASE, APTT, PROTIME, INR, P TT in the last 72 hours. RADIOLOGY: No results found. ASSESSMENT/PLAN: 64 year old female here for left lower eyelid retraction repair. Electronically signed by Jhony Hamilton MD 03/25/2019 8:18 AM documented in this encounter Miscellaneous Notes * Operative Note - Jhony Hamilton MD - 03/26/2019 6:28 AM CDT Name: ALL WEBB MRN: Date of : 1955 Attending Physician: Jhony Hamilton MD Date of Procedure: 03/25/2019 ATTENDING PHYSICIAN: Jhony Hamilton MD RN QUALITY: None. PREOPERATIVE DIAGNOSIS: Left lower eyelid retraction, history of thyroid eye di sease. POSTOPERATIVE DIAGNOSIS: Left lower eyelid retraction, history of thyroid eye d isease. OPERATIONS PERFORMED: 1. Left lower eyelid retraction repair. 2. Placement of AlloDerm spacer. 3. Temporary suture tarsorrhaphy. INDICATIONS FOR SURGERY: Ms. Webb is a 64-year-old female with a history of thyroid eye disease. The patient had bilateral lower eyelid retraction and had previously undergone a right lower eyelid retraction repair. The patient had c omplained of bilateral eye irritation, redness and on clinical examination, aaron ent had lower eyelid retraction. For this reason, she is recommended to undergo right lower eyelid retraction repair with placement of an Enduragen spacer khalida t. DESCRIPTION OF PROCEDURE: Ms. Webb was met in the preoperative holding area where the left side was confirmed as the correct side by both the patient and c onsent and left the side was marked. Patient was taken back to the operating ro om suite where timeout was performed, again confirming the left side as the princess ect side. Patient was then given IV sedation by the nurse district sales manager and a tot al of 9 mL of 1% lidocaine with epinephrine were injected into the left lower ey elid, left lateral canthal area, left upper eyelid and brow area. Patient was p repped and draped in the sterile fashion. A 6-0 silk suture was placed through the salazar line of the left lower eyelid. Monopolar cautery was used for the late ral canthal incision. Sharp Morena scissors were used to perform a canthotomy and cantholysis. Monopolar cautery was then used with an eyelid everted over a cotton tip applicator with transconjunctival incision approximately 2 mm below t he tarsal plate with both 0.5 forceps and a cotton tip applicator and then used for a blunt dissection to the infraorbital rim. The conjunctiva was then graspe d with 0.5 forceps. The overlying capsulopalpebral fascia was sharply recessed using Ramses scissors. Careful recession continued with care to check for any buttonholes through the conjunctiva. Once the lower eyelid retractors had been completely recessed, Enduragen spacer graft was then cut to a height of approxi mately 6 mm. This was then secured to the inferior edge of the lower tarsal thelma te using 6-0 Vicryl. The lower eyelid retractors were also secured to the lower edge of this. This was then trimmed to size. The conjunctiva was redraped over it and secured using a 6-0 fast absorbing gut suture, 0.5 forceps and sharp Govind tiffanie scissors were then used to create a lateral tarsal strip. The lateral tar jenny strip was then secured to the lateral orbital rim of the vicinity of Whitnal l's tubercle using 5-0 Prolene suture. A small amount of the lateral left upper eyelid margin was then resected with 0.5 forceps and sharp Morena scissors and a 6-0 silk suture was used for a salazar line to salazar line canthoplasty suture. T he Prolene was then secured with a surgeon's knot and cut end of the tarsal stri p was secured to the lateral orbital rim using 5-0 Vicryl. Skin and lateral can thus was closed with 6-0 fast. The patient's face was then washed and dried. A 5-0 Prolene suture was then used in a tarsorrhaphy fast suture fashion. Specif ically, the suture line through the brow of the upper eyelid and then passed thr ough the upper eyelid salazar line to the lower eyelid salazar line and then reversed coursed passing through the salazar line of the lower eyelid, upper eyelid and then sutured to the brow. Small piece of Telfa was placed on the upper eyelid and t he Prolene suture was then secured using surgeon's knot. Patient's face was was hed and dried. Mastisol and Transpore tape was used to secure an eye pad over t he eye and the patient was taken to the PACU in stable condition. COMPLICATIONS: None. ESTIMATED BLOOD LOSS: Less than 10 mL FOLLOWUP: Patient will follow up in 1-[address] Hamilton at [facility]. Jhony Hamilton MD [id number] CC: * Brief Operative Note - Jhony Hamilton MD - 03/25/2019 9:47 AM CDT Brief Operative Note All Webb 03/25/2019 Event Time In Procedure / Incision Start 0840 Event Time In Procedure Finish 0934 Pre-op Diagnosis: LEFT EYELID RETRACTION H02.535 Post-op Diagnosis: * No Diagnosis Codes entered * Left lower eyelid retraction Procedure: LEFT LOWER LID RETRACTION REPAIR, PLACEMENT IF ALLODERM SPACER GRAFT, TEMPORARY SUTURE TARSORAPPHY, Left - Eye Surgeon(s) and Role: * Jhony Hamilton MD - Primary Anesthesia Type: Monitor Anesthesia Care Staff: Nonprofit Manager: Radha Clement RN; Yari Price RN Scrub Person: Susana Motta Anesthesiologist: Fabiano Alberts DO CLINIC SCHEDULER: Ying Harris RN CLINIC SCHEDULER; Momo Bledsoe RN CLINIC SCHEDULER Findings: Left lower eyelid retraction Estimated Blood Loss: 5 mL Specimens: None Implants: Implant Name Type Inv. Item Serial No. Fabric Machine Operator Lot No. LRB No. Used Action IMPLANT MESH ENDURAGEN 1CM X 4CM X 1.0MM P[employer]CINE COLLAGEN [id number] - [id number] Non -Tissue Implant IMPLANT MESH ENDURAGEN 1CM X 4CM X 1.0MM PORCINE COLLAGEN [id number] [id number] Left 1 Implanted Complications: None Jhony Hamilton Date: 03/25/2019 Time: 9:47 AM documented in this encounter Plan of Treatment Not on filedocumented as of this encounter Procedures Comments Procedure Name Priority Date/Time Associated Diag nosis REPAIR, ECTROPION, EYELID 03/25/2019 LEFT EYELID RETRACTION 8:27 AM CDT H02.535 documented in this encounter Visit Diagnoses Not on filedocumented in this encounter Administered Medications Action Date Dose Rate Site Medication Order MAR Action 03/25/2019 7:39 AM CDT 1,000 mg acetaminophen (TYLENOL) tablet 1,000 mg Given 1,000 mg, Oral, Once, Thu03/25/19 at 0745, For 1 dose, Pre-op, Do not exceed 4 GM/DAY of acetaminophen. If 65 or older do not exceed 3 GM/DAY. If chroni c alcoholic do not exceed 2 GM/DAY., 03/25/2019 7:44 AM CDT 50 mL/hr 50 mL/hr lactated ringers infusion New Bag 50 mL/hr, Intravenous, Continuous, Starting Thu03/25/19 at 0745, Pre-op 03/25/2019 8:30 AM CDT 9.5 mL Left Eye lidocaine-EPINEPHrine (XYLOCAINE W/EPI) Given 1 %-1:100,000 injection As needed, Starting Thu03/25/19 at 0830 , Intra-op 03/25/2019 8:29 AM CDT 10 drops Other povidone-iodine 5 % ophthalmic solution Given As needed, Starting Thu03/25/19 at 0829 , Intra-op 03/25/2019 8:49 AM CDT 1,000 mL Operativ e Site sodium chloride irrigation (NS) 0.9 % Given As needed, Starting Thu03/25/19 at 0849 , Intra-op 03/25/2019 8:50 AM CDT 2 drops Left Eye tetracaine HCl (PF) (PONTOCAINE) 0.5 % Given ophthalmic solution As needed, Starting Thu03/25/19 at 0831 , Intra-op 2 drops Given 03/25/2019 8:31 AM CDT 03/25/2019 8:48 AM CDT 1 application Operativ e Site tobramycin-dexamethasone (TOBRADEX) Given ophthalmic ointment As needed, Starting Thu03/25/19 at 0849 , Intra-op documented in this encounter
--- OUTSIDE RECORDS SUMMARY | 2020-06-08 06:38 | XMS REPORT | Encounter Summary ---
Author Author [facility] Organization [facility] Address Unknown Phone Unavailable Care Team Providers Care Business Office Director Name Role Phone AgustinEstrellitad PCP Reason for Visit * Auth/Cert Referred By Contact Referred To Contact Status Reason Specialty Diagnoses / Procedures Diagnoses EYELID RETRACTION RIGHT LOWER EYELID H02.532 P rocedures [place] SUB GRFT F/S/N/H/F/G/M/D /<100SCM /<1ST 25 SCM [place] TEMP CLOSURE EYELID BY SUTURE [place] CORRECT LID RETRACTN W[place] SUB GRFT F/S/N/H/F/G/M/D /<100SCM /<1ST 25 SCM [place] TEMP CLOSURE EYELID BY SUTURE RIGHT LOWER LID RETRACTION REPAIR, SKIN SUBSTITUTE GRAFT (ALLODERM), TARSORRHAPHY Encounter Details Care Team Description Date [place] [address] [place] [address] [phone] 02/25/2019 [place] [address] Social History Date Tobacco Use Types Packs/Day Years Used Current Every Day Smoker Electronic Cigarettes Smokeless Tobacco: Never Used Drinks/Week oz/Week Comments Alcohol Use No Sex Assigned at Date Recorded Not on file Industry Job Start Date Occupation Not on file Not on file Not on file Travel End Travel History Travel Start No recent travel history available. documented as of this encounter Last Filed Vital Signs Reading Time Taken Comments Vital Sign 108/72 02/25/2019 9:00 AM CDT Blood Pressure 61 02/25/2019 9:00 AM CDT Pulse 36.4 C (97.6 F) 02/25/2019 8:30 AM CDT Temperature 15 02/25/2019 9:00 AM CDT Respiratory Rate 99% 02/25/2019 9:00 AM CDT Oxygen Saturation - - Inhaled Oxygen Concentration 64.4 kg (142 lb) 02/10/2019 1:17 PM CDT Weight 170.2 cm (5' 7") 02/10/2019 1:17 PM CDT Height 22.24 02/10/2019 1:17 PM CDT Body Mass Index documented in this encounter Discharge Instructions * Pre-Procedure Instructions* Gay Sanford, RN - 02/10/2019 1:30 PM CDT Current Outpatient Prescriptions Medication Sig Note: ALPRAZolam (XANAX) 2 MG tablet Take 2 mg by mouth 2 (two) times a day. Note: may continue to take as prescribed and may take the day of surgery with sips of water ARIPiprazole (ABILIFY) 30 MG tablet Take 40 mg by mouth daily. Note:may cont inue to take as prescribed and may take the day of surgery with sips of water baclofen (LIORESAL) 10 MG tablet Take 10 mg by mouth 2 (two) times a day. No te:may continue to take as prescribed and may take the day of surgery with sips of water calcium phosphate trib/vit D3 (CITRACAL + D3, CALCIUM PHOS, ORAL) Take by [facility]. Note:stop taking 1 week prior to surgery. Last day to take would February 17 019 escitalopram oxalate (LEXAPRO) 20 mg tablet Take 20 mg by mouth daily. Note: may continue to take as prescribed and may take the day of surgery with sips of water fluconazole (DIFLUCAN) 50 MG tablet Take 50 mg by mouth daily. Note:may cont inue to take as prescribed and may take the day of surgery with sips of water levothyroxine 100 mcg cap Take 100 mcg by mouth daily. Note:may continue to take as prescribed and may take the day of surgery with sips of water lifitegrast (XIIDRA) 5 % Dpet Administer to eye 2 (two) times a day. Note:ma y continue to take as prescribed and may take the day of surgery with sips of wa ter multiple vitamins B complex with C (NEPHRO-YESI) 0.8 mg tablet Take 1 tablet by mouth every evening. Note:stop taking 1 week prior to surgery. Last day to t kailash would be February 17, 2019 multiple vitamins B complex with C (NEPHRO-YESI) 1-60-300 mg-mg-mcg tablet T kailash 1 tablet by mouth daily. Note:stop taking 1 week prior to surgery. Last day to take would be February 17, 2019 selenium 200 mcg Tab Take by mouth. Note::stop taking 1 week prior to surger y. Last day to take would be February 17, 2019 therapeutic multivitamin (THERAGRAN) tablet Take 1 tablet by mouth daily. No te:stop taking 1 week prior to surgery. Last day to take would be February 17, 2019 traZODone (DESYREL) 100 MG tablet Take 100 mg by mouth nightly. Note:may con tinue to take as prescribed documented in this encounter Medications at Time [...] spasticity of spinal times a day. origin calcium phosphate Take 5,000 0 trib/vit D3 [...] mg 0 MG tablet by mouth nightly. 03/14/2019 fluconazole (DIFLUCAN) 50 Take 50 mg by 0 MG tablet mouth daily. 03/14/2019 multiple vitamins B Take 1 tablet 0 complex with C by mouth (NEPHRO-YESI) 1-60-300 daily. mg-mg-mcg tablet documented as of this encounter H&P Notes * Jhony Hamilton MD - 02/25/2019 7:10 AM CDT [facility] Surgical Services History and Physical PATIENT NAME: All Webb DATE: 02/25/2019 AGE: 64 y.o. : 1955 HISTORY OF PRESENT ILLNESS: 64 year old female here for RLL retraction repair. PAST MEDICAL HISTORY: Past Medical History: Diagnosis Date Anxiety Depression Hypothyroidism Osteoarthritis Peptic ulceration PAST SURGICAL HISTORY: Past Surgical History: Procedure Laterality Date DENTAL SURGERY EYE SURGERY decompression bilat HYSTERECTOMY OVARIAN CYST SURGERY FAMILY HISTORY: History reviewed. No pertinent family history. SOCIAL HISTORY: Social History Social History Marital status: Spouse name: N/A Number of children: N/A Years of education: N/A Occupational History Not on file. Social History Main Topics Smoking status: Current Every Day Smoker Types: Electronic Cigarettes Smokeless tobacco: Never Used Alcohol use No Drug use: No Sexual activity: Not on file Other Topics Concern Not on file Social History Narrative No narrative on file ALLERGIES: Prednisone PRIOR TO ADMISSION MEDICATIONS: Prescriptions Prior to Admission Medication Sig Dispense Refill Last Dose ALPRAZolam (XANAX) 2 MG tablet Take 2 mg by mouth 2 (two) times a day. 02/14 at Unknown time ARIPiprazole (ABILIFY) 30 MG tablet Take 40 mg by mouth daily. 02/24/2019 a t Unknown time baclofen (LIORESAL) 10 MG tablet Take 10 mg by mouth 2 (two) times a day. 02/24/2019 at Unknown time calcium phosphate trib/vit D3 (CITRACAL + D3, CALCIUM PHOS, ORAL) Take by mo uth. 02/18/19 escitalopram oxalate (LEXAPRO) 20 mg tablet Take 20 mg by mouth daily. 02/14 at Unknown time fluconazole (DIFLUCAN) 50 MG tablet Take 50 mg by mouth daily. 02/24/2019 a t Unknown time levothyroxine 100 mcg cap Take 100 mcg by mouth daily. 02/24/2019 at Unknow n time lifitegrast (XIIDRA) 5 % Dpet Administer to eye 2 (two) times a day. 2018 at Unknown time multiple vitamins B complex with C (NEPHRO-YESI) 0.8 mg tablet Take 1 tablet by mouth every evening. 02/18/19 multiple vitamins B complex with C (NEPHRO-YESI) 1-60-300 mg-mg-mcg tablet T kailash 1 tablet by mouth daily. 02/18/19 selenium 200 mcg Tab Take by mouth. 02/18/19 at Unknown time therapeutic multivitamin (THERAGRAN) tablet Take 1 tablet by mouth daily. 02/18/19 traZODone (DESYREL) 100 MG tablet Take 100 mg by mouth nightly. 02/23/19 REVIEW OF SYSTEMS: A 10-point Review of Systems was performed and is negative except for those item s mentioned in the HPI. PHYSICAL EXAM: Blood Pressure: BP: 126/55 Pulse: Pulse: (!) 52 Temperature: Temp: 36.9 C (98.4 F) Respirations: Resp: 18 Admission Weight: Weight: 64.4 kg (142 lb) O2 Saturation: SpO2: 95 % Today's Weight: Weight: 64.4 kg (142 lb) BMI: Body mass index is 22.24 kg/m. General Appearance: Alert, cooperative, no distress [...] ASSESSMENT/PLAN: 64 year old female here for RLL retraction repair. Electronically signed by Jhony Hamilton MD 02/25/2019 7:11 AM documented in this encounter Miscellaneous Notes * Operative Note - Jhony Hamilton MD - 02/27/2019 6:17 AM CDT Name: ALL WEBB MRN: Date of : 1955 Attending Physician: Jhony Hamilton MD Date of Procedure: 02/25/2019 ATTENDING PHYSICIAN: Dr. Jhony Hamilton MD. EXHIBIT CLEANER: None. 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 OPERATIONS PERFORMED: 1. Right lower eyelid retraction repair. 2. Placement of AlloDerm/Enduragen spacer graft. 3. Temporary suture tarsorrhaphy. ANESTHESIA: Local anesthesia with monitored anesthesia care. INDICATIONS FOR SURGERY: Ms. Webb is a 64-year-old female with complaint of bilateral eye irritation. The patient has significant bilateral lower eyelid r etraction secondary to thyroid eye disease with redness and irritation of the ey es. For this reason, the patient was recommended to undergo right lower eyelid retraction repair. DESCRIPTION OF PROCEDURE: Ms. Webb was met in the preoperative holding area . The right side confirmed as the correct side both patient and consent. The r ight side was marked. Patient was taken back to operating room suite where time out was performed, again confirming right side as the correct side. Patient was then given IV sedation by the nurse tobacco farmworker and a total of 6 mL of 1:1 mixt ure of 0.5% Marcaine with epinephrine and 1% lidocaine plain was injected into t he right lower eyelid and the right lateral canthal area as well as the right br ow. The patient was prepped and draped in sterile fashion, 4-0 silk suture was placed through the salazar line of the right lower eyelid. Monopolar cautery was t hen used to make a lateral canthal incision. Sharp Morena scissors used to per form a canthotomy and cantholysis. Monopolar cautery was then used to make a tr ansconjunctival incision from the caruncle to the lateral canthal area. A prese ptal dissection was then carried down to the infraorbital rim. The periosteum w as incised at infraorbital rim and a subperiosteal dissection was carried out ap proximately 1.5 cm on the cheek. Once all of the soft tissue of the mid face juarez d been released, attention was paid to the lower eyelid with 0.5 forceps and sha rp Morena scissors were then used to recess the lower eyelid retractors from th e underlying conjunctiva. Once this had been recessed, Enduragen was then cut t o height of approximately 5 mm and placed into the lower eyelid. This was then sutured to the inferior border of tarsus and the lower eyelid retractors using m ultiple interrupted 6-0 Vicryl sutures. The conjunctiva was then redraped over the Enduragen and then closed using 6-0 fast. Then 5-0 Vicryl was then used to reapproximate the lateral canthus. A salazar line to salazar line canthoplasty suture with 6-0 fast was also utilized. The traction suture was then removed, 5-0 Pro ramonita was used in a fofana suture manner. Specifically, this suture went through the right brow through the salazar line of the upper and lower eyelid and then back through the salazar line of the lower and upper eyelids and the brows. Telfa was p laced over the upper eyelid and this suture was secured with a surgeon's knot so that the lower eyelid was on upward traction. Patient's face was washed, dried. TobraDex ophthalmic ointment was placed in the eye and 2 eye patches secured with Mastisol and Transpore tape. The patient was taken to the PACU in stable c ondition. COMPLICATIONS: None. ESTIMATED BLOOD LOSS: Less than 10 mL. FOLLOWUP: The patient will follow up in 1-[address] Hamilton at [facility]. DRAINS: None. SPECIMENS: None. Jhony Hamilton MD [id number] CC: * Brief Operative Note - Jhony Hamilton MD - 02/25/2019 8:28 AM CDT Brief Operative Note All Matthew Webb 02/25/2019 Event Time In Procedure / Incision Start 740 Event Time In Procedure Finish 823 Pre-op Diagnosis: EYELID RETRACTION RIGHT LOWER EYELID H02.532 Post-op Diagnosis: * No Diagnosis Codes entered * Right lower eyelid retraction Procedure: RIGHT LOWER LID RETRACTION REPAIR, SKIN SUBSTITUTE GRAFT (ENDURAGEN),, Right - E ye SUTURE TARSORRHAPHY, Right - Eye Surgeon(s) and Role: * Jhony Hamilton MD - Primary Anesthesia Type: Monitor Anesthesia Care Staff: Senior Escrow Officer: Yari Price RN Scrub Person: Lurdes Casanova Float: Anusha De León; Carey Bowles RN Anesthesiologist: Maxi Ward DO ASSISTANT BOILER OPERATOR: Jessica Wright CRNA Findings: Right lower eyelid retraction Estimated Blood Loss: 10 mL Specimens: None Implants: Implant Name Type Inv. Item Serial No. Biologist Lot No. [id number] No. Used Action IMPLANT MESH ENDURAGEN 1CM X 4CM X 1.0MM PORCINE COLLAGEN [id number] - [id number] Non -Tissue Implant IMPLANT MESH ENDURAGEN 1CM X 4CM X 1.0MM PORCINE COLLAGEN [id number] AMY F [id number] Right 1 Implanted Complications: None Jhony Hamilton Date: 02/25/2019 Time: 8:28 AM documented in this encounter Plan of Treatment Not on filedocumented as of this encounter Procedures Comments Procedure Name Priority Date/Time Associated Diag nosis BLEPHARORRHAPHY 02/25/2019 EYELID RETRACTION R IGHT 7:21 AM CDT LOWER EYELID H02.532 Special Needs Enduragen EXCISION, LESION, SKIN, 02/25/2019 EYELID RETRAC TION RIGHT BROW, WITH SKIN GRAFT 7:21 AM CDT LOWER EYELID H0 2.532 APPLICATION Special Needs Enduragen documented in this encounter Visit Diagnoses Not on filedocumented in this encounter Administered Medications Action Date Dose Rate Site Medication Order MAR Action fentaNYL (SUBLIMAZE) injection 25-50 mc g 25-50 mcg, Intravenous, Every 5 min PRN , severe pain (pain score 7-10), Starting Thu02/25/19 at 0659, For 4 doses, Pre-op, Up to 100 mcg total., 02/25/2019 8:47 AM CDT 50 mcg fentaNYL (SUBLIMAZE) injection 25-50 mcg Given 25-50 mcg, Intravenous, Every 5 min PRN , pain, Starting Thu02/25/19 at 0831, PAC U (only), Give only if RR is greater than 8 breaths/min. Maximum of 200 mcg in 2 hours., 02/25/2019 9:05 AM CDT 1 tablet HYDROcodone-acetaminophen (NORCO) 5-325 Given mg per tablet 1 tablet 1 tablet, Oral, Once, Indications: pain , Thu02/25/19 at 0900, For 1 dose, PACU (only), Do not exceed 4 GM/DAY of acetaminophen. If 65 or older do not exceed 3 GM/DAY. If chronic alcoholic d o not exceed 2 GM/DAY., 02/25/2019 6:48 AM CDT 50 mL/hr 50 mL/hr lactated ringers infusion New Bag 50 mL/hr, Intravenous, Continuous, Starting Thu02/25/19 at 0645, For 48 hours, Pre-op meperidine (DEMEROL) injection 25 mg 25 mg, Intravenous, Every 5 min PRN, shivering, Starting Thu02/25/19 at 0831 , For 2 doses, PACU (only), May repeat x 1 in 5 minutes if continued shivering., 02/25/2019 7:19 AM CDT 2 mg midazolam (PF) (VERSED) injection 1-2 mg Given 1-2 mg, Intravenous, Every 5 min PRN, anxiety, sedation, Starting Thu02/25/19 at 0659, For 2 doses, Pre-op oxyCODONE-acetaminophen (PERCOCET) 5-32 5 mg 1-2 tablet 1-2 tablet, Oral, Once as needed, sever e pain (pain score 7-10), Starting Thu02/25/19 at 0831, For 1 dose, PACU (only), Administer once as needed for moderate pain prior to discharge home when tolerating oral fluids., documented in this encounter
--- OUTSIDE RECORDS SUMMARY | 2020-06-08 06:38 | XMS REPORT | Encounter Summary ---
Author Author [facility] Organization [facility] Address Unknown Phone Unavailable Care Team Providers Care Inoculator Name Role Phone Huber Velez PCP Reason for Visit * Auth/Cert Referred By Contact Referred To Contact Status Reason Specialty Diagnoses / Procedures Diagnoses LEFT EYELID RETRACTION H02.535 P rocedures [place] CORRECT LID RETRACTN LEFT LOWER LID RETRACTION REPAIR Encounter Details Care Team Description Date Type Department Aristeo Fabiano LeoDO [address] [place] [address] [phone] 03/25/2019 [place] [address] Anesthesia Record Responsible Anesthesiologist Anesthesia Start Time Anesthesi a Stop Time Procedure Name Fabiano Alberts 03/25/19 0827 03/25/19 0936 LEFT LOWER LID RETRACTION REPAIR, PLACEMENT IF ALLODERM SPACER GRAFT, TEMPORARY SUTURE TARSORAPPHY (Left Eye) Date Time Event Comment 808 0820 AN Equip Check 0827 In room 0827 An Start 0827 An Start Data 0827 Pt eval immediately prior to anesthesia 0828 Anesthesia Ready 0829 Oxygen per nasal cannula 0830 Sedation begin 0831 Local injected 9 ml 1% Lido with 1 :100K epi per surgeon 0832 Spontaneous respirations 0840 Procedure start - Primary Case 0934 Procedure stop - Primary case 0934 Spontaneous respirations 0934 an stop data 0934 Responds to Verbal 0934 Out of Room 0936 An Stop 0936 Handoff I completed my SBAR handoff to the receiving nurse in the PACU. Meds Name Total midazolam (VERSED) injection 1 mg/mL 2 mg lidocaine 1% (PF) 50 mg propofol 10mg/mL 130 mg lactated ringers infusion 700 mL * Name Cell Saver Blood Intake O2 N2O Air EtSEVO EtISO EtDES EtN2O * No blood administrations on file. Removal Type Details Placement Wound 02/25/19; 0822; Incision; Eye 02/25/19 0822 by Carey Bowles RN Wound 03/25/19; 0850; Incision; Eye; Left; 0 03/25/19 0850 by Radha Clement RN 03/25/19 1002 by Juan Otero Peripheral Date: 03/25/19; Time: 743; Size 03/25 0744 by Palak Moncada IV (gauge): 20 G; Orientation: Right; Sergio pizarro RN Location: Forearm; Site Prep: Chlorhexidine; Technique: Palpation; Insertion Attempts: 1; Inserted By: cecilia hardy; Removal Date: 03/25/19; Removal Time: 1002 documented in this encounter Social History Date Tobacco Use Types Packs/Day [...] history available. documented as of this encounter Miscellaneous Notes * Anesthesia Postprocedure Evaluation - Jhony Park RN TRAINING AND DEVELOPMENT DIRECTOR - 03/25/2019 9:57 AM CDT Anesthesia Post Evaluation Patient Evaluated in: PACU Patient Participation: complete - patient participated Level of Consciousness: awake and alert Pain scale: Adequate analgesia. Pain Management: adequate Airway Patency: patent Respiratory Status: spontaneous ventilation Cardiovascular Status: hemodynamically stable Postoperative Hydration: euvolemic Postop Nausea/Vomiting: controlled Anesthetic Complications: No Appropriate for discharge from anesthesia care, no apparent anesthesia related c omplication ANE Post Eval Vitals Most Recent Value BP 119/67 filed at 03/25/2019 0945 Pulse 57 filed at 03/25/2019 0945 Temp 36.5 C (97.7 F) filed at 03/25/2019 0936 Resp 14 filed at 03/25/2019 0945 SpO2 94 % filed at 03/25/2019 0945 T * Anesthesia Preprocedure Evaluation - Fabiano Alberts DO - 03/25/2019 8:09 AM CDT Relevant Problems No relevant active problems Anesthesia Evaluation No history of anesthetic complications History of tobacco (electric cigarettes) use. NO history of alcohol use. Airway Mallampati: I TM distance: >3 FB Neck ROM: full Adequate mouth opening No prominent facial hair Dental Dental Status:upper dentures and lower dentures Pulmonary - negative ROS and normal exam Cardiovascular - negative ROS and no rmal exam Exercise tolerance: good Rhythm: regular Rate: normal Neuro/Psych (+) anxiety, Depression GI/Hepatic/Renal (+) PUD, Endo/Other - negative ROS (+) hypothyroidism, Abdominal Obstetrics HEENT HEENT comment: Left eyelid retraction Musculoskeletal (+) osteoarthritis Anesthesia Plan ASA 2 Type: MAC () Plan to include: spontaneous ventilation Anesthetic plan and risks discussed with patient. Post-operative analgesia: routine analgesia and antiemetics Recovery plan: PACU PONV risk level: low documented in this encounter Plan of Treatment Not on filedocumented as of this encounter Visit Diagnoses Not on filedocumented in this encounter Administered Medications Action Date Dose Rate Site Medication Order MAR Action 03/25/2019 8:30 AM CDT 50 mg lidocaine (pf) (XYLOCAINE-MPF) 10 mg/mL Given (1 %) injection Intravenous, As needed, Starting Thu03/25/19 at 0830, Anesthesia Intra-op 03/25/2019 8:40 AM CDT 1 mg midazolam (PF) (VERSED) injection Given As needed, Starting Thu03/25/19 at 0839 , Anesthesia Intra-op 1 mg Given 03/25/2019 8:39 AM CDT 03/25/2019 8:46 AM CDT 20 mg propofol (DIPRIVAN) injection Given As needed, Starting Thu03/25/19 at 0830 , Anesthesia Intra-op 20 mg Given 03/25/2019 8:43 AM CDT 20 mg Given 03/25/2019 8:42 AM CDT documented in this encounter
--- OUTSIDE RECORDS SUMMARY | 2020-06-08 06:38 | XMS REPORT | Encounter Summary ---
Author Author [facility] Organization [facility] Address Unknown Phone Unavailable Care Team Providers Care Resident Care Supervisor Name Role Phone Huber Velez PCP Reason for Visit * Auth/Cert Referred By Contact Referred To Contact Status Reason Specialty Diagnoses / Procedures Diagnoses EYELID RETRACTION RIGHT LOWER EYELID H02.532 P rocedures NC SUB GRFT F/S/N/H/F/G/M/D /<100SCM /<1ST 25 SCM NC TEMP CLOSURE EYELID BY SUTURE NC CORRECT LID RETRACTN NC SUB GRFT F/S/N/H/F/G/M/D /<100SCM /<1ST 25 SCM NC TEMP CLOSURE EYELID BY SUTURE RIGHT LOWER LID RETRACTION REPAIR, SKIN SUBSTITUTE GRAFT (ALLODERM), TARSORRHAPHY Encounter Details Care Team Description Date Type Department Maxi Ward DO [address] [place] [address] [place] [address] [phone] 02/25/2019 [place] [address] Anesthesia Record Responsible Anesthesiologist Anesthesia Start Time Anesthesi a Stop Time Procedure Name Maxi Ward DO 02/25/19 0721 02/25/19 0832 RIGHT LOWER LID RETRACTION REPAIR, SKIN SUBSTITUTE GRAFT (ENDURAGEN), (Right Eye) Date Time Event Comment 704 AN Equip Check 2018 0715 0721 In room 0721 An Start 0722 An Start Data 0729 Pt eval immediately prior to anesthesia 0729 Anesthesia Ready 0729 Oxygen per nasal cannula 0729 Sedation begin 0729 Local injected per surgeon 0741 Procedure start - Primary Case 0741 Spontaneous respirations 0824 Procedure stop - Primary case 0824 Spontaneous respirations 0825 an stop data 0826 Responds to Verbal 0826 Out of Room 0832 Handoff I completed my SBAR handoff to the receiving nurse in the PACU. 0832 An Stop Meds Name Total propofol 10mg/mL 250 mg ondansetron 2mg/mL 4 mg glycopyrrolate 0.2mg/mL 0.2 mg lactated ringers infusion 800 mL * Name Cell Saver Blood Intake O2 N2O Air EtSEVO EtISO EtDES EtN2O * No blood administrations on file. Removal Type Details Placement Wound 02/25/19; 821; Incision; Eye 02/25/19 08 by Carey Bowles RN 02/25/19 09 by Katelynn Polk RN Peripheral Date: 02/25/19; Time: 647; Size 02/25 0648 by Sylvie IV (gauge): 20 G; Orientation: Left; Nohemy jiang RN Location: Hand; Site Prep: Chlorhexidine; Local Anesthetic: None; Insertion Attempts: 1; Inserted By: SYLVIE WORTHY; Removal Date: 02/25/19 ; Removal Time: 919 documented in this encounter Social History Date [...] Miscellaneous Notes * Anesthesia Postprocedure Evaluation - Gasper Maharaj MD - 02/25/2019 9:07 AM CDT Anesthesia Post Evaluation Patient Evaluated in: PACU Patient Participation: complete - patient participated Level of Consciousness: awake and alert Pain Management: adequate Airway Patency: patent Respiratory Status: spontaneous ventilation Cardiovascular Status: hemodynamically stable Postoperative Hydration: euvolemic Postop Nausea/Vomiting: controlled Anesthetic Complications: No Appropriate for discharge from anesthesia care, no apparent anesthesia related c omplication ANE Post Eval Vitals Most Recent Value BP 108/72 filed at 02/25/2019 0900 Pulse 61 filed at 02/25/2019 0900 Temp 36.4 C (97.6 F) filed at 02/25/2019 0830 Resp 15 filed at 02/25/2019 0900 SpO2 99 % filed at 02/25/2019 0900 * Anesthesia Preprocedure Evaluation - Maxi Ward DO - 02/25/2019 6:59 AM CDT Relevant Problems No relevant active problems Anesthesia Evaluation Patient summary and Nursing notes reviewed No history of anesthetic complications NO history of alcohol, tobacco and drug use. Airway Mallampati: II TM distance: >3 FB Neck ROM: full Adequate mouth opening Dental Dental Status:upper dentures and lower dentures Pulmonary - negative ROS and normal exam Cardiovascular - negative ROS and no rmal exam Neuro/Psych - negative ROS GI/Hepatic/Renal - negative ROS Endo/Other - negative ROS (+) hypothyroidism, Abdominal Obstetrics HEENT Musculoskeletal Anesthesia Plan ASA 2 Type: MAC () Anesthetic plan and risks discussed with patient. Plan discussed with [employer]. Post-operative analgesia: routine analgesia and antiemetics Recovery plan: PACU Risk factors for PONV: non smoker and female PONV risk level: moderate documented in this encounter Plan of Treatment Not on filedocumented as of this encounter Visit Diagnoses Not on filedocumented in this encounter Administered Medications Action Date Dose Rate Site Medication Order MAR Action 02/25/2019 7:36 AM CDT 0.2 mg glycopyrrolate (ROBINUL) injection Given As needed, secretions, Starting Thu02/25/19 at 0736, Anesthesia Intra-op 02/25/2019 7:29 AM CDT 4 mg ondansetron (ZOFRAN) injection Given As needed, nausea, vomiting, Starting Thu02/25/19 at 0729, Anesthesia Intra-o p 02/25/2019 8:20 AM CDT 20 mg propofol (DIPRIVAN) injection Given As needed, Starting Thu02/25/19 at 0729 , Anesthesia Intra-op 40 mg Given 02/25/2019 8:19 AM CDT 20 mg Given 02/25/2019 8:16 AM CDT documented in this encounter
--- OUTSIDE RECORDS SUMMARY | 2020-06-08 06:38 | XMS REPORT | Continuity of Care Document ---
Author Organization Unknown Address Unknown Phone Unavailable Allergies Active Description Code Type Severity Reaction Onset Reported/Identified Relationship to Patient Clinical Status Yes prednisone [id number] Drug Allerg y Mild N/A 06/17/2016 Yes prednisone [id number] Drug Allerg y Mild WRIST/JOINT VENKAT 04/01/2018 Medications There is no data. Problems Date Dx Coded Attending Type Code Diagnosis Diagnosed By 02/02/2014 LIBAN HENRIQUEZ MD Ot 724 .5 BACKACHE NOS 02/02/2014 LIBAN HENRIQUEZ MD Ot 737.30 IDIOPATHIC SCOLIOSIS 02/02/2014 LIBAN HENRIQUEZ MD Ot V57 .1 PHYSICAL THERAPY NEC 06/10/2016 Ot V76.12 OTH SCREEN MAMMO- MALIGN NEOPLASM OF [place] 06/10/2016 Ot 719.45 CRISTIAN NT PAIN-PELVIS 06/10/2016 Ot 719.46 CRISTIAN NT PAIN-L/LEG 06/10/2016 Ot 722.52 LUM B/LUMBOSAC DISC DEGEN 06/10/2016 Ot 737.30 IDI OPATHIC SCOLIOSIS 06/10/2016 Ot V76.12 OTH SCREEN MAMMO- MALIGN NEOPLASM OF [place] 06/10/2016 LIBAN HENRIQUEZ MD Ot 715.36 LOC OSTEOARTH NOS-L/LEG 06/10/2016 LIBAN HENRIQUEZ MD Ot 722.52 LUMB/LUMBOSAC DISC DEGEN 06/10/2016 LIBAN HENRIQUEZ MD Ot 737.30 IDIOPATHIC SCOLIOSIS 06/10/2016 LIBAN HENRIQUEZ MD Ot V76.12 OTH SCREEN MAMMO-MALIGN NEOPLASM OF [place] 06/10/2016 LIBAN HENRIQUEZ MD Ot 338.29 OTHER CHRONIC PAIN 06/10/2016 LIBAN HENRIQUEZ MD Ot 737.30 IDIOPATHIC SCOLIOSIS 06/11/2016 LIBAN HENRIQUEZ MD Ot Z12.31 ENCNTR SCREEN MAMMOGRAM FOR MALIGNANT NE 06/11/2016 LIBAN HENRIQUEZ MD Ot Z12.31 ENCNTR SCREEN MAMMOGRAM FOR MALIGNANT NE 06/17/2016 Ot V76.12 OTH SCREEN MAMMO- MALIGN NEOPLASM OF [place] 06/17/2016 Ot 719.45 CRISTIAN NT PAIN-PELVIS 06/17/2016 Ot 719.46 CRISTIAN NT PAIN-L/LEG 06/17/2016 Ot 722.52 LUM B/LUMBOSAC DISC DEGEN 06/17/2016 Ot 737.30 IDI OPATHIC SCOLIOSIS 06/17/2016 Ot V76.12 OTH SCREEN MAMMO- MALIGN NEOPLASM OF [place] 06/17/2016 LIBAN HENRIQUEZ MD Ot 715.36 LOC OSTEOARTH NOS-L/LEG 06/17/2016 LIBAN HENRIQUEZ MD Ot 722.52 LUMB/LUMBOSAC DISC DEGEN 06/17/2016 LIBAN HENRIQUEZ MD Ot 737.30 IDIOPATHIC SCOLIOSIS 06/17/2016 LIBAN HENRIQUEZ MD Ot V76.12 OTH SCREEN MAMMO-MALIGN NEOPLASM OF [place] 06/17/2016 LIBAN HENRIQUEZ MD Ot 338.29 OTHER CHRONIC PAIN 06/17/2016 LIBAN HENRIQUEZ MD Ot 737.30 IDIOPATHIC SCOLIOSIS 06/17/2016 LIBAN HENRIQUEZ MD Ot Z12.31 ENCNTR SCREEN MAMMOGRAM FOR MALIGNANT NE 06/17/2016 FRANC LAWRENCE, FILIPPO Melgar Ot M25.551 PAIN IN RIGHT HIP 06/17/2016 FRANC LAWRENCE, FILIPPO Melgar Ot M54.5 LOW BACK PAIN 06/17/2016 FILIPPO BRUNER MD Ot R10.31 RIGHT LOWER QUADRANT PAIN 06/17/2016 FILIPPO BRUNER MD T Ot R11.10 VOMITING, UNSPECIFIED 06/17/2016 FILIPPO BRUNER MD T Ot R21 RASH AND OTHER NONSPECIFIC SKIN ERUPTION 06/18/2016 FILIPPO BRUNER MD T Ot M25.551 PAIN IN RIGHT HIP 06/18/2016 FILIPPO BRUNER MD Ot M54.5 LOW BACK PAIN 06/18/2016 FILIPPO BRUNER MD T Ot R10.31 RIGHT LOWER QUADRANT PAIN 06/18/2016 FILIPPO BRUNER MD Ot R11.10 VOMITING, UNSPECIFIED 06/18/2016 BRUEGGEMANN MD, FILIPPO T Ot R21 RASH AND OTHER NONSPECIFIC SKIN ERUPTION 07/01/2016 LIBAN HENRIQUEZ MD Ot Z12.31 ENCNTR SCREEN MAMMOGRAM FOR MALIGNANT NE 07/14/2016 LIBAN HENRIQUEZ MD Ot Z12.31 ENCNTR SCREEN MAMMOGRAM FOR MALIGNANT NE 08/31/2017 Ot V76.12 OTH SCREEN MAMMO- MALIGN NEOPLASM OF ROS[place] 08/31/2017 LIBAN HENRIQUEZ MD Ot 715.36 LOC OSTEOARTH NOS-L/LEG 08/31/2017 LIBAN HENRIQUEZ MD Ot 722.52 LUMB/LUMBOSAC DISC DEGEN 08/31/2017 LIBAN HENRIQUEZ MD Ot 737.30 IDIOPATHIC SCOLIOSIS 08/31/2017 LIBAN HENRIQUEZ MD Ot V76.12 OTH SCREEN MAMMO-MALIGN NEOPLASM OF [place] 08/31/2017 LIBAN HENRIQUEZ MD Ot 338.29 OTHER CHRONIC PAIN 08/31/2017 LIBAN HENRIQUEZ MD Ot 737.30 IDIOPATHIC SCOLIOSIS 08/31/2017 LIBAN HENRIQUEZ MD Ot Z12.31 ENCNTR SCREEN MAMMOGRAM FOR MALIGNANT NE 08/31/2017 EDISON YBARRA MD Ot Z12. 31 ENCNTR SCREEN MAMMOGRAM FOR MALIGNANT NE 09/01/2017 EDISON YBARRA MD Ot Z12. 31 ENCNTR SCREEN MAMMOGRAM FOR MALIGNANT NE 09/23/2017 EDISON YBARRA MD Ot Z12. 31 ENCNTR SCREEN MAMMOGRAM FOR MALIGNANT NE 09/28/2017 EDISON YBARRA MD Ot R59. 0 LOCALIZED ENLARGED LYMPH NODES 10/02/2017 EDISON YBARRA MD Ot Z12. 31 ENCNTR SCREEN MAMMOGRAM FOR MALIGNANT NE 10/02/2017 EDISON YBARRA MD Ot R59. 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 02/05/2018 KANNARR, EDNA R OD Ot H05.241 CONSTANT EXOPHTHALMOS, RIGHT EYE 02/05/2018 KANNARR, EDNA R OD Ot H50.89 OTHER SPECIFIED STRABISMUS 02/05/2018 KANNARR, EDNA R OD Ot J32 .8 OTHER CHRONIC SINUSITIS 02/05/2018 KANNARR, EDNA R OD Ot Z86.39 PERSONAL HISTORY OF ENDO, NUTRITIONAL AN 02/05/2018 KANNARR, EDNA R OD Ot Z98.890 OTHER SPECIFIED POSTPROCEDURAL STATES 02/12/2018 KANNARR, EDNA R OD Ot 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 02/12/2018 KANNARR, EDNA R OD Ot H05.241 CONSTANT EXOPHTHALMOS, RIGHT EYE 02/12/2018 KANNARR, EDNA R OD Ot H50.89 OTHER SPECIFIED STRABISMUS 02/12/2018 KANNARR, EDNA R OD Ot J32 .8 OTHER CHRONIC SINUSITIS 02/12/2018 KANNARR, EDNA R OD Ot Z86.39 PERSONAL HISTORY OF ENDO, NUTRITIONAL AN 02/12/2018 KANNARR, EDNA R OD Ot Z98.890 OTHER SPECIFIED POSTPROCEDURAL STATES 04/01/2018 KERI FERNANDEZ MD Ot Z01.818 ENCOUNTER FOR OTHER PREPROCEDURAL EXAMIN 04/01/2018 KERI FERNANDEZ MD Ot Z01.818 ENCOUNTER FOR OTHER PREPROCEDURAL EXAMIN 04/02/2018 KERI FERNANDEZ MD Ot H26 .9 UNSPECIFIED CATARACT 04/02/2018 KERI FERNANDEZ MD Ot Z79.82 LONG-TERM (CURRENT) USE OF ASPIRIN 04/02/2018 KERI FERNANDEZ MD Ot Z79.899 OTHER PIPELINES SUPERVISOR (CURRENT) DRUG THERAPY 04/05/2018 KERI FERNANDEZ MD Ot H26 .9 UNSPECIFIED CATARACT 04/05/2018 KERI FERNANDEZ MD Ot Z79.82 PIPELINES SUPERVISOR (CURRENT) USE OF ASPIRIN 04/05/2018 KERI FERNANDEZ MD Ot Z79.899 OTHER PIPELINES SUPERVISOR (CURRENT) DRUG THERAPY 04/13/2018 KERI FERNANDEZ MD Ot H26 .9 UNSPECIFIED CATARACT 04/13/2018 KERI FERNANDEZ MD Ot Z79.82 PIPELINES SUPERVISOR (CURRENT) USE OF ASPIRIN 04/13/2018 KERI FERNANDEZ MD Ot Z79.899 OTHER LONG-TERM (CURRENT) DRUG THERAPY 04/21/2018 KERI FERNANDEZ MD Ot Z01.818 ENCOUNTER FOR OTHER PREPROCEDURAL EXAMIN 04/23/2018 KERI FERNANDEZ MD Ot Z01.818 ENCOUNTER FOR OTHER PREPROCEDURAL EXAMIN 04/23/2018 KERI FERNANDEZ MD Ot H26 .9 UNSPECIFIED CATARACT 04/23/2018 KERI FERNANDEZ MD Ot Z79.82 LONG-TERM (CURRENT) USE OF ASPIRIN 04/23/2018 KERI FERNANDEZ MD Ot Z87.891 PERSONAL HISTORY OF NICOTINE DEPENDENCE 04/26/2018 KERI FERNANDEZ MD Ot H26 .9 UNSPECIFIED CATARACT 04/26/2018 KERI FERNANDEZ MD Ot Z79.82 PIPELINES SUPERVISOR (CURRENT) USE OF ASPIRIN 04/26/2018 KERI FERNANDEZ MD Ot Z87.891 PERSONAL HISTORY OF NICOTINE DEPENDENCE 05/17/2018 KELSEY ALEXANDER DO Ot Z78.0 ASYMPTOMATIC MENOPAUSAL STATE 05/17/2018 LIBAN HENRIQUEZ MD Ot 715.36 LOC OSTEOARTH NOS-L/LEG 05/17/2018 LIBAN HENRIQUEZ MD Ot 722.52 LUMB/LUMBOSAC DISC DEGEN 05/17/2018 LIBAN HENRIQUEZ MD Ot 737.30 IDIOPATHIC SCOLIOSIS 05/17/2018 LIBAN HENRIQUEZ MD Ot V76.12 OTH SCREEN MAMMO-MALIGN NEOPLASM OF [place] 05/17/2018 LIBAN HENRIQUEZ MD Ot 338.29 OTHER CHRONIC PAIN 05/17/2018 LIBAN HENRIQUEZ MD Ot 737.30 IDIOPATHIC SCOLIOSIS 05/17/2018 LIBAN HENRIQUEZ MD Ot Z12.31 ENCNTR SCREEN MAMMOGRAM FOR MALIGNANT NE 05/17/2018 EDISON YBARRA MD Ot Z12. 31 ENCNTR SCREEN MAMMOGRAM FOR MALIGNANT NE 05/17/2018 EDISON YBARRA MD Ot R59. 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 05/17/2018 KANNARR, EDNA R OD Ot H05.241 CONSTANT EXOPHTHALMOS, RIGHT EYE 05/17/2018 KANNARR, EDNA R OD Ot H50.89 OTHER SPECIFIED STRABISMUS 05/17/2018 KANNARR, EDNA R OD Ot J32 .8 OTHER CHRONIC SINUSITIS 05/17/2018 KANNARR, EDNA R OD Ot Z86.39 PERSONAL HISTORY OF ENDO, NUTRITIONAL AN 05/17/2018 KANNARR, EDNA R OD Ot Z98.890 OTHER SPECIFIED POSTPROCEDURAL STATES 05/17/2018 ALEXANDER DO, KELSEY L Ot Z78.0 ASYMPTOMATIC MENOPAUSAL STATE 05/21/2018 [place] DO, KELSEY L Ot M81.0 AGE-RELATED OSTEOPOROSIS W/O CURRENT PAT 05/21/2018 ALEXANDER DO, KELSEY L Ot M85.88 OT DISRD OF BONE DENSITY AND STRUCTURE, 05/21/2018 [facility], KELSEY L Ot Z13.820 ENCOUNTER FOR SCREENING FOR OSTEOPOROSIS 06/10/2018 ALEXANDER , KELSEY L Ot M81.0 AGE-RELATED OSTEOPOROSIS W/O CURRENT PAT 06/10/2018 [place] DO, KELSEY L Ot M85.88 OT DISRD OF BONE DENSITY AND STRUCTURE, 06/10/2018 [place] DO KELSEY L Ot Z13.820 ENCOUNTER FOR SCREENING FOR OSTEOPOROSIS 08/31/2019 LIBAN HENRIQUEZ MD Ot Z12.31 ENCNTR SCREEN MAMMOGRAM FOR MALIGNANT NE 08/31/2019 EDISON YBARRA MD Ot Z12. 31 ENCNTR SCREEN MAMMOGRAM FOR MALIGNANT NE 08/31/2019 EDISON YBARRA MD Ot R59. 0 LOCALIZED ENLARGED LYMPH NODES 08/31/2019 EDNA DOVER R OD Ot 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 08/31/2019 MYLES DOVERE R OD Ot H05.241 CONSTANT EXOPHTHALMOS, RIGHT EYE 08/31/2019 KANNARR, EDNA R OD Ot H50.89 OTHER SPECIFIED STRABISMUS 08/31/2019 EDNA DOVER OD Ot J32 .8 OTHER CHRONIC SINUSITIS 08/31/2019 EDNA DOVRE OD Ot Z86.39 PERSONAL HISTORY OF ENDO, NUTRITIONAL AN 08/31/2019 EDNA DOVER OD Ot Z98.890 OTHER SPECIFIED POSTPROCEDURAL STATES 08/31/2019 ALEXANDER DO, KELSEY L Ot M81.0 AGE-RELATED OSTEOPOROSIS W/O CURRENT PAT 08/31/2019 ALEXANDER DO, KELSEY L Ot M85.88 OTH DISRD OF BONE DENSITY AND STRUCTURE, 08/31/2019 ALEXANDER DO, KELSEY L Ot Z13.820 ENCOUNTER FOR SCREENING FOR OSTEOPOROSIS 08/31/2019 ALEXANDER DO, KELSEY L Ot M81.0 AGE-RELATED OSTEOPOROSIS W/O CURRENT PAT 09/22/2019 ALEXANDER DO, KELSEY L Ot G89.29 OTHER CHRONIC PAIN 09/22/2019 ALEXANDER DO, KELSEY L Ot M54.9 DORSALGIA, UNSPECIFIED 09/22/2019 ALEXANDER DO, KELSEY L Ot M81.0 AGE-RELATED OSTEOPOROSIS W/O CURRENT PAT 09/22/2019 ALEXANDER DO, KELSEY L Ot R29.898 OTH SYMPTOMS AND SIGNS INVOLVING THE MUS 09/29/2019 ALEXANDER DO, KELSEY L Ot G89.29 OTHER CHRONIC PAIN 09/29/2019 ALEXANDER DO, KELSEY L Ot M54.9 DORSALGIA, UNSPECIFIED 09/29/2019 ALEXANDER DO, KELSEY L Ot M81.0 AGE-RELATED OSTEOPOROSIS W/O CURRENT PAT 09/29/2019 ALEXANDER DO, KELSEY L Ot R29.898 OTH SYMPTOMS AND SIGNS INVOLVING THE MUS 09/30/2019 ALEXANDER DO, KELSEY L Ot G89.29 OTHER CHRONIC PAIN 09/30/2019 ALEXANDER DO, KELSEY L Ot M54.9 DORSALGIA, UNSPECIFIED 09/30/2019 ALEXANDER DO, KELSEY L Ot M81.0 AGE-RELATED OSTEOPOROSIS W/O CURRENT PAT 09/30/2019 ALEXANDER DO, KELSEY L Ot R29.898 OTH SYMPTOMS AND SIGNS INVOLVING THE MUS 10/26/2019 FLORENCE LAWRENCE, LIBAN Slater Ot Z12.31 ENCNTR SCREEN MAMMOGRAM FOR MALIGNANT NE 10/26/2019 EDISON YBARRA MD Ot Z12. 31 ENCNTR SCREEN MAMMOGRAM FOR MALIGNANT NE 10/26/2019 EDISON YBARRA MD Ot R59. 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 10/26/2019 KANNARR, EDNA R OD Ot H05.241 CONSTANT EXOPHTHALMOS, RIGHT EYE 10/26/2019 KANNARR, EDNA R OD Ot H50.89 OTHER SPECIFIED STRABISMUS 10/26/2019 KANNARR, EDNA R OD Ot J32 .8 OTHER CHRONIC SINUSITIS 10/26/2019 KANNARR, EDNA R OD Ot Z86.39 PERSONAL HISTORY OF ENDO, NUTRITIONAL AN 10/26/2019 JAZZMINE, EDNA R OD Ot Z98.890 OTHER SPECIFIED POSTPROCEDURAL STATES 10/26/2019 KELSEY ALEXANDER DO Ot M81.0 AGE-RELATED OSTEOPOROSIS W/O CURRENT PAT 10/26/2019 KELSEY ALEXANDER DO Ot M85.88 OTH DISRD OF BONE DENSITY AND STRUCTURE, 10/26/2019 KELSEY ALEXANDER DO Ot Z13.820 ENCOUNTER FOR SCREENING FOR OSTEOPOROSIS 10/26/2019 KELSEY ALEXANDER DO Ot M81.0 AGE-RELATED OSTEOPOROSIS W/O CURRENT PAT 10/26/2019 AMADA LAWRENCE, EDISON Frank Ot M25.552 PAIN IN LEFT HIP 10/26/2019 EDISON YBARRA MD Ot M53. 3 SACROCOCCYGEAL DISORDERS, NOT ELSEWHERE 10/26/2019 EDISON YBARRA MD Ot Z12. 31 ENCNTR SCREEN MAMMOGRAM FOR MALIGNANT NE 12/08/2019 LIBAN HENRIQUEZ MD Ot Z12.31 ENCNTR SCREEN MAMMOGRAM FOR MALIGNANT NE 12/08/2019 EDISON YBARRA MD Ot Z12. 31 ENCNTR SCREEN MAMMOGRAM FOR MALIGNANT NE 12/08/2019 EDISON YBARRA MD Ot R59. 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 12/08/2019 KANNARR, EDNA R OD Ot H05.241 CONSTANT EXOPHTHALMOS, RIGHT EYE 12/08/2019 KANNARR, EDNA R OD Ot H50.89 OTHER SPECIFIED STRABISMUS 12/08/2019 YMLES DOVERE R OD Ot J32 .8 OTHER CHRONIC SINUSITIS 12/08/2019 MYLES DOVERE R OD Ot Z86.39 PERSONAL HISTORY OF ENDO, NUTRITIONAL AN 12/08/2019 JAZZMINE EDNA R OD Ot Z98.890 OTHER SPECIFIED POSTPROCEDURAL STATES 12/08/2019 [facility], KELSEY L Ot M81.0 AGE-RELATED OSTEOPOROSIS W/O CURRENT PAT 12/08/2019 [facility], KELSEY L Ot M85.88 OT DISRD OF BONE DENSITY AND STRUCTURE, 12/08/2019 [facility], KELSEY L Ot Z13.820 ENCOUNTER FOR SCREENING FOR OSTEOPOROSIS 12/08/2019 [facility], KELSEY L Ot M81.0 AGE-RELATED OSTEOPOROSIS W/O CURRENT PAT 12/08/2019 AMADA LAWRECNE, EDISON Frank Ot M25.552 PAIN IN LEFT HIP 12/08/2019 AMADA LAWRENCE, EDISON Frank Ot M53. 3 SACROCOCCYGEAL DISORDERS, NOT ELSEWHERE 12/08/2019 AMADA LAWRENCE, EDISON Frank Ot Z12. 31 ENCNTR SCREEN MAMMOGRAM FOR MALIGNANT NE 12/09/2019 LIBAN HENRIQUEZ MD Ot Z12.31 ENCNTR SCREEN MAMMOGRAM FOR MALIGNANT NE 12/09/2019 EDISON YBARRA MD Ot Z12. 31 ENCNTR SCREEN MAMMOGRAM FOR MALIGNANT NE 12/09/2019 AMADA LAWRENCE, EDISON Frank Ot R59. 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 12/09/2019 EDNA DOVER R OD Ot H05.241 CONSTANT EXOPHTHALMOS, RIGHT EYE 12/09/2019 MYLES DOVERE R OD Ot H50.89 OTHER SPECIFIED STRABISMUS 12/09/2019 MYLES DOVERE R OD Ot J32 .8 OTHER CHRONIC SINUSITIS 12/09/2019 JAZZMINE EDNA R OD Ot Z86.39 PERSONAL HISTORY OF ENDO, NUTRITIONAL AN 12/09/2019 JAZZMINE EDNA R OD Ot Z98.890 OTHER SPECIFIED POSTPROCEDURAL STATES 12/09/2019 [facility], KELSEY L Ot M81.0 AGE-RELATED OSTEOPOROSIS W/O CURRENT PAT 12/09/2019 [facility], KELSEY L Ot M85.88 OTH DISRD OF BONE DENSITY AND STRUCTURE, 12/09/2019 [facility], KELSEY L Ot Z13.820 ENCOUNTER FOR SCREENING FOR OSTEOPOROSIS 12/09/2019 [facility], KELSEY L Ot M81.0 AGE-RELATED OSTEOPOROSIS W/O CURRENT PAT 12/09/2019 EDISON YBARRA MD Ot M25.552 PAIN IN LEFT HIP 12/09/2019 EDISON YBARRA MD Ot M53. 3 SACROCOCCYGEAL DISORDERS, NOT ELSEWHERE 12/09/2019 EDISON YBARRA MD Ot Z12. 31 ENCNTR SCREEN MAMMOGRAM FOR MALIGNANT NE 12/12/2019 FILIPPO JOHNSON Ot M47.816 SPONDYLOSIS W/O MYELOPATHY OR RADICULOPA 01/04/2020 LIBAN HENRIQUEZ MD Ot Z12.31 ENCNTR SCREEN MAMMOGRAM FOR MALIGNANT NE 01/04/2020 EDISON YBARRA MD Ot Z12. 31 ENCNTR SCREEN MAMMOGRAM FOR MALIGNANT NE 01/04/2020 EDISON YBARRA MD Ot R59. 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 01/04/2020 EDNA DOVER R OD Ot H05.241 CONSTANT EXOPHTHALMOS, RIGHT EYE 01/04/2020 EDNA DOVER R OD Ot H50.89 OTHER SPECIFIED STRABISMUS 01/04/2020 EDNA DOVER R OD Ot J32 .8 OTHER CHRONIC SINUSITIS 01/04/2020 EDNA DOVER R OD Ot Z86.39 PERSONAL HISTORY OF ENDO, NUTRITIONAL AN 01/04/2020 KANMYLES TELLESE R OD Ot Z98.890 OTHER SPECIFIED POSTPROCEDURAL STATES 01/04/2020 ALEXANDER DO, KELSEY L Ot M81.0 AGE-RELATED OSTEOPOROSIS W/O CURRENT PAT 01/04/2020 ALEXANDER DO, KELSEY L Ot M85.88 OTH DISRD OF BONE DENSITY AND STRUCTURE, 01/04/2020 [facility], KELSEY L Ot Z13.820 ENCOUNTER FOR SCREENING FOR OSTEOPOROSIS 01/04/2020 [facility], KELSEY L Ot M81.0 AGE-RELATED OSTEOPOROSIS W/O CURRENT PAT 01/04/2020 EDISON YBARRA MD Ot M25.552 PAIN IN LEFT HIP 01/04/2020 EDISON YBARRA MD, Ot M53. 3 SACROCOCCYGEAL DISORDERS, NOT ELSEWHERE 01/04/2020 EDISON YBARRA MD Ot Z12. 31 ENCNTR SCREEN MAMMOGRAM FOR MALIGNANT NE 01/04/2020 SWEET PA, FILIPPO R Ot M47.816 SPONDYLOSIS W/O MYELOPATHY OR RADICULOPA 01/20/2020 FILIPPO JOHNSON R Ot M47.816 SPONDYLOSIS W/O MYELOPATHY OR RADICULOPA 01/26/2020 LIBAN HENRIQUEZ MD Ot Z12.31 ENCNTR SCREEN MAMMOGRAM FOR MALIGNANT NE 01/26/2020 EDISON YBARRA MD Ot Z12. 31 ENCNTR SCREEN MAMMOGRAM FOR MALIGNANT NE 01/26/2020 EDISON YBARRA MD Ot R59. 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 01/26/2020 EDNA DOVER OD Ot H05.241 CONSTANT EXOPHTHALMOS, RIGHT EYE 01/26/2020 EDNA DOVER R OD Ot H50.89 OTHER SPECIFIED STRABISMUS 01/26/2020 EDNA DOVER OD Ot J32 .8 OTHER CHRONIC SINUSITIS 01/26/2020 EDNA DOVER R OD Ot Z86.39 PERSONAL HISTORY OF ENDO, NUTRITIONAL AN 01/26/2020 EDNA DOVER R OD Ot Z98.890 OTHER SPECIFIED POSTPROCEDURAL STATES 01/26/2020 KELSEY ALEXANDER DO Ot M81.0 AGE-RELATED OSTEOPOROSIS W/O CURRENT PAT 01/26/2020 KELSEY ALEXANDER DO Ot M85.88 OTH DISRD OF BONE DENSITY AND STRUCTURE, 01/26/2020 KELSEY ALEXANDER DO Ot Z13.820 ENCOUNTER FOR SCREENING FOR OSTEOPOROSIS 01/26/2020 KELSEY ALEXANDER DO Ot M81.0 AGE-RELATED OSTEOPOROSIS W/O CURRENT PAT 01/26/2020 EDISON YBARRA MD Ot M25.552 PAIN IN LEFT HIP 01/26/2020 AMADA MD, EDISON C Ot M53. 3 SACROCOCCYGEAL DISORDERS, NOT ELSEWHERE 01/26/2020 AMADA LAWRENCE, EDISON C Ot Z12. 31 ENCNTR SCREEN MAMMOGRAM FOR MALIGNANT NE 01/26/2020 MARKUS PA, FILIPPO R Ot M47.816 SPONDYLOSIS W/O MYELOPATHY OR RADICULOPA 01/26/2020 OTHER, UNLISTED Ot H05.89 OTHER DISORDERS OF ORBIT 01/26/2020 OTHER, UNLISTED Ot J32.8 OTHER CHRONIC SINUSITIS 01/26/2020 [facility], KELSEY L Ot M81.0 AGE-RELATED OSTEOPOROSIS W/O CURRENT PAT 01/26/2020 [facility], KELSEY L Ot M81.0 AGE-RELATED OSTEOPOROSIS W/O CURRENT PAT 02/01/2020 MARKUS PA, FILIPPO R Ot M47.816 SPONDYLOSIS W/O MYELOPATHY OR RADICULOPA 02/01/2020 SWEET PA, FILIPPO R Ot M47.816 SPONDYLOSIS W/O MYELOPATHY OR RADICULOPA 02/24/2020 SWEET PA, FILIPPO R Ot M47.816 SPONDYLOSIS W/O MYELOPATHY OR RADICULOPA 03/02/2020 SWEET PA, FILIPPO R Ot M47.816 SPONDYLOSIS W/O MYELOPATHY OR RADICULOPA 03/15/2020 SWEET PA, FILIPPO R Ot M47.816 SPONDYLOSIS W/O MYELOPATHY OR RADICULOPA 05/21/2020 [facility], KELSEY L Ot M81.0 AGE-RELATED OSTEOPOROSIS W/O CURRENT PAT 05/22/2020 [facility], KELSEY L Ot M81.0 AGE-RELATED OSTEOPOROSIS W/O CURRENT PAT 05/23/2020 [facility], KELSEY L Ot M81.0 AGE-RELATED OSTEOPOROSIS W/O CURRENT PAT 05/24/2020 [facility], KELSEY L Ot M81.0 AGE-RELATED OSTEOPOROSIS W/O CURRENT PAT 05/24/2020 [facility], KELSEY L Ot Z13.820 ENCOUNTER FOR SCREENING FOR OSTEOPOROSIS 05/24/2020 [facility], KELSEY L Ot Z78.0 ASYMPTOMATIC MENOPAUSAL STATE Procedures There is no data. Results Test Result Range Complete urinalysis with reflex to cultu re - 06/17/16 10:05 Urine color determination YELLOW NRG Urine clarity determination CLEAR NR G Urine pH measurement by test strip 7 5-9 Specific gravity of urine by test strip 1.010 1.016-1.022 Urine protein assay by test strip, semi-quantitative NEGATIVE NEGATIVE Urine glucose detection by automated test strip NE GATIVE NEGATIVE Erythrocytes detection in urine sediment by light micr oscopy NEGATIVE NEGATIVE Urine ketones detection by automated test strip NE GATIVE NEGATIVE Urine nitrite detection by test strip NEGATIVE NEGATIVE Urine total bilirubin detection by test strip NEGA TIVE NEGATIVE Urine urobilinogen measurement by automated test strip (mass/volume) NORMAL NORMAL Urine leukocyte esterase detection by dipstick NEG ATIVE NEGATIVE Automated urine sediment erythrocyte cou nt by microscopy (number/high power field) NONE NRG Automated urine sediment leukocyte count by microscopy (number/high power field) RARE NRG Bacteria detection in urine sediment by light microsco py NEGATIVE NRG Squamous epithelial cells detection in u rine sediment by light microscopy 0-2 NRG Crystals detection in urine sediment by light microsco py NONE NRG Casts detection in urine sediment by light microscopy NONE NRG Mucus detection in urine sediment by light microscopy NEGATIVE NRG Complete urinalysis with reflex to culture NO NRG Comprehensive metabolic panel - 06/17/16 10:25 Serum or plasma sodium measurement (moles/volume) 139 mmol/L 135-145 Serum or plasma potassium measurement (moles/volume) 4.5 mmol/L 3.6-5.0 Serum or plasma chloride measurement (moles/volume) 100 mmol/L 98-107 Carbon dioxide 33 mmol/L 21-32 Serum or plasma anion gap determination (moles/volume) 6 mmol/L 5-14 Serum or plasma urea nitrogen measurement (mass/volume ) 9 mg/dL 7-18 Serum or plasma creatinine measurement (mass/volume) 0.89 mg/dL 0.60-1.30 Serum or plasma urea nitrogen/creatinine mass ratio 10 NRG Serum or plasma creatinine measurement w ith calculation of estimated glomerular filtration rate > NRG Serum or plasma glucose measurement (mass/volume) 103 mg/dL 70-105 Serum or plasma calcium measurement (mass/volume) 9.3 mg/dL 8.5-10.1 Serum or plasma total bilirubin measurement (mass/volu me) 0.4 mg/dL 0.1-1.0 Serum or plasma alkaline phosphatase brittani surement (enzymatic activity/volume) 82 U/L 40-136 Serum or plasma aspartate aminotransfera se measurement (enzymatic activity/volume) 17 U/L 5-34 Serum or plasma alanine aminotransferase measurement (enzymatic activity/volume) 15 U/L 0-55 Serum or plasma protein measurement (mass/volume) 6.7 g/dL 6.4-8.2 Serum or plasma albumin measurement (mass/volume) 4.3 g/dL 3.2-4.5 Serum or plasma C reactive protein measu rement (mass/volume) - 06/17/16 10:25 Serum or plasma C reactive protein measurement (mass/v olume) 0.26 mg/dL 0.00-0.50 Complete blood count (CBC) with automate d white blood cell (WBC) differential - 06/17/16 10:25 Blood leukocytes automated count (number/volume) 6.4 10*3/uL 4.3-11.0 Blood erythrocytes automated count (number/volume) 4.47 10*6/uL 4.35-5.85 Venous blood hemoglobin measurement (mass/volume) 13.9 g/dL 11.5-16.0 Blood hematocrit (volume fraction) 43 % 35-52 Automated erythrocyte mean corpuscular volume 96 [ foz_us] 80-99 Automated erythrocyte mean corpuscular h emoglobin (mass per erythrocyte) 31 pg 25-34 Automated erythrocyte mean corpuscular h emoglobin concentration measurement (mass/volume) 32 g/dL 32-36 Automated erythrocyte distribution width ratio 13. 4 % 10.0- 14.5 Automated blood platelet count (count/volume) 387 10*3/uL 130-400 Automated blood platelet mean volume measurement 9.7 [foz_us] 7.4-10.4 Automated blood neutrophils/100 leukocytes 70 % 42-75 Automated blood lymphocytes/100 leukocytes 22 % 12-44 Blood monocytes/100 leukocytes 6 % 0-12 Automated blood eosinophils/100 leukocytes 1 % 0-10 Automated blood basophils/100 leukocytes 0 % 0-10 Blood neutrophils automated count (number/volume) 4.5 10*3 1.8-7.8 Blood lymphocytes automated count (number/volume) 1.4 10*3 1.0-4.0 Blood monocytes automated count (number/volume) 0. 4 10*3 0.0-1.0 Automated eosinophil count 0.1 10*3/uL 0 .0-0.3 Automated blood basophil count (count/volume) 0.0 10*3/uL 0.0-0.1 Automated blood complete blood count (he mogram) panel - 01/11/18 15:05 Blood leukocytes automated count (number/volume) 5.7 10*3/uL 4.3-11.0 Blood erythrocytes automated count (number/volume) 4.13 10*6/uL 4.35-5.85 Venous blood hemoglobin measurement (mass/volume) 13.8 g/dL 11.5-16.0 Blood hematocrit (volume fraction) 41 % 35-52 Automated erythrocyte mean corpuscular volume 98 [ foz_us] 80-99 Automated erythrocyte mean corpuscular h emoglobin (mass per erythrocyte) 33 pg 25-34 Automated erythrocyte mean corpuscular h emoglobin concentration measurement (mass/volume) 34 g/dL 32-36 Automated erythrocyte distribution width ratio 13. 5 % 10.0- 14.5 Automated blood platelet count (count/volume) 260 10*3/uL 130-400 Automated blood platelet mean volume measurement 9.3 [foz_us] 7.4-10.4 [id number] - 01/11/18 15:05 Serum or plasma urea nitrogen measurement (mass/volume ) 10 mg/dL 7-18 Serum or plasma creatinine measurement (mass/volume) 0.97 mg/dL 0.60-1.30 Serum or plasma urea nitrogen/creatinine mass ratio 10 NRG Serum or plasma creatinine measurement w ith calculation of estimated glomerular filtration rate 58 NRG Encounters ACCT No. Visit Date/Time Discharge Status Pt. Type Provider Facility Loc./Unit Complaint [id number] 10/25/2013 13:00:10 ACT Document Registration [id number] 06/05/2020 05:53:00 10:49:00 DIS Outpatient KERI FERNANDEZ MD Via [facility] PREOP YAG [id number] 05/22/2020 10:13:00 23:59:59 CLS Outpatient KELSEY ALEXANDER DO Via [facility] RAD OSTEOPOROSIS M8 1.0 [id number] 01/05/2020 13:42:00 23:59:59 CLS Outpatient OTHER, UNLISTED V ia [facility] RAD OTHER DISORDERS OF ORBI T [id number] 12/09/2019 13:52:00 020 23:59:59 CLS Outpatient FILIPPO JOHNSON [facility] RAD BACK PAIN [id number] 10/10/2019 13:32:00 019 23:59:59 CLS Outpatient EDISON YBARRA MD Via [facility] RAD SCREENING,LEFT HIP PAIN [id number] 09/29/2019 14:30:00 15:20:00 DIS Outpatient KELSEY ALEXANDER DO Via [facility] REHAB BACK PAIN; OA [id number] 05/20/2018 09:33:00 018 23:59:59 CLS Outpatient KELSEY ALEXANDER DO Via [facility] RAD MENOPAUSAL STAT E [id number] 04/23/2018 05:48:00 018 07:40:00 DIS Outpatient KERI FERNANDEZ MD Via [facility] CATARACT LEFT EYE [id number] 04/21/2018 05:34:00 018 12:11:00 DIS Outpatient KERI FERNANDEZ MD Via [facility] PREOP CATARACT LEFT EYE [id number] 04/02/2018 05:59:00 018 07:40:00 DIS Outpatient KERI FERNANDEZ MD Via [facility] CATARACT RIGHT EYE [id number] 03/31/2018 05:33:00 018 11:00:00 DIS Outpatient KERI FERNANDZE MD Via [facility] PREOP CATARACT RIGHT EYE [id number] 01/11/2018 14:56:00 018 23:59:59 CLS Outpatient EDNA DOVER OD Via [facility] RAD H05.249 [id number] 09/04/2017 10:40:00 017 23:59:59 CLS Outpatient EDISON YBARRA MD Via [facility] RAD L SUBMANDIBULAR MASS [id number] 08/31/2017 15:10:00 23:59:59 CLS Outpatient EDISON YBARRA MD [facility] RAD SCREENING [id number] 08/25/2017 09:33:00 23:59:59 CLS Preadmit EDISON YBARRA MD Via [facility] RAD Z12.31 ANNUAL PREVENTIV E CARE SCREENING [id number] 06/23/2017 16:06:00 23:59:59 CLS Preadmit EDISON YBARRA MD Via [facility] RAD SCREENING [id number] 06/17/2016 09:21:00 016 13:33:00 DIS Emergency FILIPPO BRUNER MD Via [facility] ER LOWER RIGHT DELICIA E/BACK PAIN [id number] 06/10/2016 13:00:00 016 23:59:59 CLS Outpatient LIBAN HENRIQUEZ MD [facility] RAD SCREENING [id number] 02/02/2014 14:49:00 014 16:56:00 DIS Outpatient LIBAN HENRIQUEZ MD [facility] REHAB BACK PAIN [id number] 10/31/2013 09:44:00 013 23:59:59 CLS Outpatient LIBAN HENRIQUEZ MD [facility] RAD SCOLIOSIS,DDD,CHRONIC P AIN [id number] 10/25/2013 12:23:00 23:59:59 CLS Outpatient LIBAN HENRIQUEZ MD [facility] RAD PAIN L BACK,HIP KNEE,SC REENING [id number] 06/08/2020 08:30:00 P EN KERI Peck MD [facility] [id number] 09/17/2012 11:02:00 Document Registration [id number] 10/02/2011 09:26:00 Document Registration [id number] 03/12/2011 13:12:00 Document Registration
--- OUTSIDE RECORDS SUMMARY | 2020-06-08 06:38 | XMS REPORT | Encounter Summary ---
Author Author [facility] Organization [facility] Address Unknown Phone Unavailable Care Team Providers Care Water Pump Operator Name Role Phone Agustin Huber PCP Reason for Visit * Auth/Cert Referred By Contact Referred To Contact Status Reason Specialty Diagnoses / Procedures Diagnoses LEFT EYELID RETRACTION H02.535 P rocedures AL CORRECT LID RETRACTN LEFT LOWER LID RETRACTION REPAIR Encounter Details Care Team Description Date [place] [address] [place] [address] [phone] 03/25/2019 [place] [address] Social History Date Tobacco Use Types Packs/Day [...] ASPIRIN or ASPIRIN PRODUC TS). 7. Use [place] for more severe pain. 8. Your first [...] telephone is answered 24 hours a day- [phone] documented in this encounter Medications at Time [...] Hamilton MD - 03/25/2019 8:18 AM CDT [facility] Surgical Services History and Physical PATIENT NAME: [...] SUTURE TARSORRHAPHY; Surgeon: Jhony Hamilton MD; Location: [facility] Main OR; Service: Ophthalmology; Laterality: Right; CATARACT EXTRACTION, BILATERAL DENTAL SURGERY EXCISION, LESION, SKIN, BROW, WITH SKIN GRAFT APPLICATION Right 02/25/2019 Procedure: RIGHT LOWER LID RETRACTION REPAIR, SKIN SUBSTITUTE GRAFT (ENDURAGEN) ,; Surgeon: Jhony Hamilton MD; Location: [facility] Main OR; Service: Ophthalmo logy; Laterality: Right; [...] Procedure: 03/25/2019 ATTENDING PHYSICIAN: Jhony Hamilton MD HOSPITALITY TEAM MEMBER: None. PREOPERATIVE DIAGNOSIS: Left lower eyelid retraction, [...] then given IV sedation by the nurse jetting machine operator and a tot al of 9 mL [...] absorbing gut suture, 0.5 forceps and sharp We tiffanie scissors were then used to create [...] in 1-[address] Hamilton at [facility]. Jhony Hamilton MD [id number] CC: * Brief Operative Note - Jhony [...] Primary Anesthesia Type: Monitor Anesthesia Care Staff: Digital Business Analyst: Radha Clement RN; Yari Price RN Scrub Person: Susana Motta Anesthesiologist: Fabiano Alberts DO HYPERTRICHOLOGIST: Ying Harris RN HYPERTRICHOLOGIST; Momo Bledsoe RN HYPERTRICHOLOGIST Findings: Left lower eyelid retraction Estimated Blood Loss: 5 mL Specimens: None Implants: Implant Name Type Inv. Item Serial No. Services Executive Lot No. LRB No. Used Action IMPLANT MESH ENDURAGEN 1CM X 4CM X 1.0MM PORCINE COLLAGEN [id number] - [id number] Non -Tissue Implant IMPLANT MESH ENDURAGEN 1CM X 4CM X 1.0MM PORCINE COLLAGEN 13022 AMY CMF [id number] Left 1 Implanted Complications: None Jhony Hamilton [...] Intravenous, Continuous, Starting Thu03/25/19 at 0745, Pre-op documented in this encounter
--- OUTSIDE RECORDS SUMMARY | 2020-06-08 06:38 | XMS REPORT | Encounter Summary ---
Author Author [facility] Organization [facility] Address Unknown Phone Unavailable Care Team Providers Care Lump Roller Name Role Phone Estrellita Velezd PCP Reason for Visit * Auth/Cert Referred By Contact Referred To Contact Status Reason Specialty Diagnoses / Procedures Diagnoses EYELID RETRACTION RIGHT LOWER EYELID H02.532 P rocedures MI SUB GRFT F/S/N/H/F/G/M/D /<100SCM /<1ST 25 SCM MI TEMP CLOSURE EYELID BY SUTURE MI CORRECT LID RETRACTN MI SUB GRFT F/S/N/H/F/G/M/D /<100SCM /<1ST 25 SCM MI TEMP CLOSURE EYELID BY SUTURE RIGHT LOWER LID RETRACTION REPAIR, SKIN SUBSTITUTE GRAFT (ALLODERM), TARSORRHAPHY Encounter Details Care Team Description Date [place] [address] [place] [address] [phone] RIGHT LOWER LID RETRACTION REPAIR, SKIN SUBSTITUTE GRAFT (ENDURAGEN), 02/25/2019 [place] [address] Social History Date Tobacco Use Types Packs/Day [...] Discharge Instructions * Pre-Procedure Instructions* Gay Sanford, SANG - 02/10/2019 1:30 PM CDT Current Outpatient [...] + D3, CALCIUM PHOS, ORAL) Take by [facility]. Note:stop taking 1 week prior to surgery. [...] Hamilton MD - 02/25/2019 7:10 AM CDT [facility] Surgical Services History and [...] D3, CALCIUM PHOS, ORAL) Take by [facility]. 02/18/19 escitalopram oxalate (LEXAPRO) 20 mg tablet [...] 02/25/2019 ATTENDING PHYSICIAN: Dr. Jhony Hamilton MD. SALES AGENT CASUALTY INSURANCE: None. PREOPERATIVE DIAGNOSIS: Right lower eyelid retraction [...] then given IV sedation by the nurse raking machine operator and a total of 6 mL of [...] in 1-[address] Hamilton at [facility]. DRAINS: None. SPECIMENS: None. Jhony Hamilton MD [id number] CC: * Brief Operative Note - Jhony Hamilton MD - 02/25/2019 8:28 AM CDT Brief Operative Note All Webb 02/25/2019 Event Time In Procedure / [...] Primary Anesthesia Type: Monitor Anesthesia Care Staff: Show Card Writer: Yari Price RN Scrub Person: Lurdes Casanova Float: Anusha De León; Carey Bowles RN Anesthesiologist: Maxi Ward DO SOCIAL MEDIA SR STRATEGY MANAGER: Jessica Wright CRNA Findings: Right lower eyelid retraction Estimated Blood Loss: 10 mL Specimens: None Implants: Implant Name Type Inv. Item Serial No. Legal Advisor Lot No. LRB No. Used Action IMPLANT MESH ENDURAGEN 1CM X 4CM X 1.0MM PORCINE COLLAGEN [id number] - [id number] Non -Tissue Implant IMPLANT MESH ENDURAGEN 1CM X 4CM X 1.0MM PORCINE COLLAGEN [id number] [employer]ance CMF [id number] Right 1 Implanted Complications: None Jhony Hamilton [...] Thu02/25/19 at 0645, For 48 hours, Pre-op 02/25/2019 7:31 AM CDT 6 mL Operativ e Site lidocaine-EPINEPHrine (XYLOCAINE W/EPI) Given 1 %-1:100,000 injection As needed, Starting Thu02/25/19 at 0731 , Intra-op meperidine (DEMEROL) injection 25 mg 25 mg, [...] to discharge home when tolerating oral fluids., 02/25/2019 7:32 AM CDT 500 mL Other sodium chloride irrigation (NS) 0.9 % Given As needed, Starting Thu02/25/19 at 0732 , Intra-op 02/25/2019 8:02 AM CDT 2 drops tetracaine HCl (PF) (PONTOCAINE) 0.5 % Given ophthalmic solution As needed, Starting Thu02/25/19 at 0802 , Intra-op 02/25/2019 8:21 AM CDT 1 application tobramycin-dexamethasone (TOBRADEX) Given ophthalmic ointment As needed, Starting Thu02/25/19 at 0821 , Intra-op documented in this encounter
[2020-06-08] MEDS ORDERED: PHENYLEPHRINE 10% OPHTH (NEO-SYN) 5 ML BTL OU PRN (06:45)
[2020-06-08] MEDS ORDERED: TROPICAMIDE 1% OPH SOLN (MYDRIACYL) 15 ML BTL OU PRN (06:45)
[2020-06-08 06:50] VITALS: BP 122/59
[2020-06-08] MEDS: TETRACAINE 0.5% OPHTH SOLN 4 ML BTL (SINGLE DOSE ONLY) OU PRN ×3 (06:52→07:08)
[2020-06-08 07:40] VITALS: BP 122/59
--- NOTE | 2020-06-08 08:24 | Ophthalmologist Pre-Op Note ---
Pre-Operative Progress Note H&P Reviewed The H&P was reviewed, patient examined and no changes noted. Date H&P Reviewed: Jun 08, 2020 Time H&P Reviewed: 07:33 Pre-Op Dx Secondary Cataract, Bilateral Eyes KERI FERNANDEZ MD Jun 08, 2020 08:24
--- NOTE | 2020-06-08 08:25 | Ophthalmology Operative Report ---
YAG Capsulotomy PREOPERATIVE DIAGNOSIS: Secondary Cataract Bilateral POSTOPERATIVE DIAGNOSIS: Secondary Cataract Bilateral PROCEDURE: YAG Capsulotomy, Bilateral SURGEON: Roscoe Fernandez ANESTHESIA: Topical anesthesia COMPLICATIONS: None ESTIMATED BLOOD LOSS: Minimal DESCRIPTION OF PROCEDURE: After proper informed consent was obtained, the patient's, a 65 female , received one drop of Tropicamide and one drop of Tetracaine in each eye. The patient was then placed at the YAG laser and using a power of [3.8 ] millijoules and bursts [ 13] right eye and [ 19] left eye were used to fashion a central capsulotomy. The patient tolerated the procedure well without complications. ROSCOE FERNANDEZ MD Jun 08, 2020 08:25
== END 2020-06-08 07:40 | disposition home or self-care (01) ==
LOC: SDC 06:33
PROVIDERS: ATTEND Specialist
DX: H26.493 Other secondary cataract, bilateral (principal); F41.9 Anxiety disorder, unspecified; F32.9 Major depressive disorder, single episode, unspecified; G47.00 Insomnia, unspecified; M19.90 Unspecified osteoarthritis, unspecified site; Z79.899 Other long term (current) drug therapy; Z88.8 Allergy status to other drugs, medicaments and biological substances; Z87.891 Personal history of nicotine dependence; Z80.1 Family history of malignant neoplasm of trachea, bronchus and lung

== ENCOUNTER 2021-07-06 07:13 | Emergency (ER) | payer MEDICARE, MEDICAID ==
[~2021-07-06] VITALS: Ht 167 cm; Wt 50.3 kg
[2021-07-06] MEDS ORDERED: NS IV 500 ML 500 ML IV ONE (07:30)
[2021-07-06] MEDS ORDERED: fentaNYL INJ 100 MCG/2 ML AMP IVP ONE ×2 (07:30→08:45)
[2021-07-06 07:39] LABS: BASOPHILS % (AUTO) 0 % (0-10); EOSINOPHILS # (AUTO) 0.1 10^3/uL (0.0-0.3); EOSINOPHILS % (AUTO) 1 % (0-10); HEMATOCRIT 41 % (35-52); HEMOGLOBIN 13.3 g/dL (11.5-16.0); LYMPHOCYTES # (AUTO) 1.7 10^3/uL (1.0-4.0); LYMPHOCYTES % (AUTO) 14 % (12-44); MEAN CORPUSCULAR HEMOGLOBIN 33 pg (25-34); MEAN CORPUSCULAR HGB CONC 32 g/dL (32-36); MEAN CORPUSCULAR VOLUME 101 fL (80-99); MEAN PLATELET VOLUME 9.3 fL (9.0-12.2); MONOCYTES # (AUTO) 0.6 10^3/uL (0.0-1.0); MONOCYTES % (AUTO) 5 % (0-12); NEUTROPHILS # (AUTO) 9.2 10^3/uL (1.8-7.8); NEUTROPHILS % (AUTO) 79 % (42-75); PLATELET COUNT 269 10^3/uL (130-400); WHITE BLOOD COUNT 11.7 10^3/uL (4.3-11.0)
--- NOTE | 2021-07-06 07:43 | ED Hip Pain/Injury ---
General Chief Complaint: Hip/Pelvic Problems Stated Complaint: FELL,HIP PAIN Source: patient, family Exam Limitations: no limitations (MELLY MURGUIA STUDENT) History of Present Illness Date Seen by Provider: Jul 06, 2021 Time Seen by Provider: 07:15 Initial Comments Pt presents to ED with sister via POV with complaints of hip pain. She states that at about 3AM this morning she slipped and fell, hit her L hip on the floor, denies hitting her head/LOC. She laid there for about half an hour in pain before she was able to pull herself to a chair to call her sister. She took a hydrocodone/acetaminophen 10/325 at 330AM with no relief. She complains of 10/10 pain to her L proximal femur, denies radiation. She also has 1/10 pain to her L 3rd digit. She takes medications for Graves disease, receives injections for OA and eye issues related to her thyroid. She denies symptoms of chest pain, SOB, N/V. Timing/Duration: this morning (3AM ) Severity: severe Location: hip (L) (L hip/upper thigh) Method of Injury: fell Modifying Factors: Improves With Immobilization; Worse With Movement, Worse With Pain Medication; Improves With Rest Associated Symptoms: No fatigue, No fever; trouble walking (MELLY MURGUIA STUDENT) Initial Comments Patient takes Forteo for osteoporosis. (JOANNE GAO) Allergies and Home Medications Allergies Coded Allergies: prednisone (Verified Adverse Reaction, Mild, WRIST/JOINT PAIN, 04/01/18) Home Medications Alprazolam 2 Mg Tablet, 2 MG PO BID, (Reported) Aripiprazole 10 Mg Tablet, 10 MG PO DAILY, (Reported) Aripiprazole 30 Mg Tablet, 30 MG PO DAILY, (Reported) Aspirin 81 Mg Tablet.dr, 81 MG PO DAILY, (Reported) Carisoprodol 350 Mg Tablet, 350 MG PO BID, (Reported) Escitalopram Oxalate 10 Mg Tablet, 10 MG PO DAILY, (Reported) Levothyroxine Sodium 100 Mcg Tablet, 100 MCG PO DAILY, (Reported) Patient Home Medication List Home Medication List Reviewed: Yes (MELLY MURGUIA STUDENT) Review of Systems Constitutional: No chills, No dizziness, No fever EENTM: No hearing loss, No vision loss Respiratory: No cough, No hemoptysis, No short of breath Cardiovascular: No chest pain, No edema, No palpitations Gastrointestinal: No abdominal pain, No constipation, No diarrhea Genitourinary: No dysuria, No frequency, No hematuria Musculoskeletal: joint pain (L hip 10/10); No joint swelling Skin: No change in color, No change in hair/nails Psychiatric/Neurological: Denies Headache, Denies Numbness, Denies Paresthesia (MELLY MURGUIA) All Other Systems Reviewed Negative Unless Noted: Yes (MELLY MURGUIA) Past Wbwhcxp-Sajyuz-Smefzf Hx Patient Social History Tobacco Use?: Yes Tobacco type used: Cigarettes Smoking Status: Current Everyday Smoker Substance use?: No Alcohol Use?: No Pt feels they are or have been: No (MELLY MURGUIA) Tobacco Use?: Yes Tobacco type used: Cigarettes Smoking Status: Current Everyday Smoker Substance use?: No Alcohol Use?: No (JOANNE GAO) Immunizations Up To Date COVID19 Vaccine Cmo: BOTH VACCINES MODERNA (MELLY MURGUIA) Past Medical History Eye Surgery, Hysterectomy, Thyroidectomy Reproductive Disorders: No TRANSPORT MEDIC History: Hysterectomy Chronic Back Pain Hypothyroidsim (MELLY MURGUIA) Physical Exam Vital Signs Vital Signs - First Documented 07/06/21 07:16 Temp 36.6 Pulse 72 Resp 22 B/P (MAP) 111/54 (73) Pulse Ox 95 (JOANNE GAO) Vital Signs Capillary Refill : (MELLY MURGUIA) Height, Weight, BMI Height: 5'6.00" Weight: 136lbs. 0.0oz. 61.367397wp; BMI Method:Stated General Appearance: WD/WN, Moderate Distress, Thin HEENT: PERRL/EOMI, Normal ENT Inspection, Pharynx Normal Neck: Full Range of Motion, Normal Inspection, Non Tender, Supple Cardiovascular: Regular Rate, Rhythm, No Edema, No Murmur, Normal Peripheral Pulses Respiratory: Chest Non Tender, Lungs Clear, Normal Breath Sounds, No Accessory Muscle Use, No Respiratory Distress Peripheral Pulses: 2+ Dorsalis Pedis (R), 2+ Left Dors-Pedis (L), 2+ Radial Pulses (R), 2+ Radial Pulses (L) Gastrointestinal: Normal Bowel Sounds, Non Tender, Soft Back: Normal Inspection, No CVA Tenderness, No Vertebral Tenderness Extremity: Normal Capillary Refill, Normal Inspection, No Calf Tenderness, Pelvis Stable; No Swelling; Other (tender to palpation L upper thigh, sensation intact bilaterally, pulses +2/4 bilaterally, no pelvic instability, no ecchymosis/erythema/obvious deformity) Neurologic/Psychiatric: Alert, Oriented x3, No Motor/Sensory Deficits, Normal Mood/Affect Skin: Normal Color, Warm/Dry Lymphatic: No Adenopathy (MELLY MURGUIA STUDENT) Extremity: Other (tender to palpation L upper thigh, sensation intact bilaterally, pulses +2/4 bilaterally, no pelvic instability, no ecchymosis/ erythema/obvious deformity) (JOANNE GAO) Progress/Results/Core Measures Results/Orders Lab Results Laboratory Tests Test 07/06/21 07:25 07/06/21 08:08 Range/Units White Blood Count 11.7 H 4.3-11.0 10^3/uL Red Blood Count 4.09 3.80-5.11 10^6/uL Hemoglobin 13.3 11.5-16.0 g/dL Hematocrit 41 35-52 % Mean Corpuscular Volume 101 H 80-99 fL Mean Corpuscular Hemoglobin 33 25-34 pg Mean Corpuscular Hemoglobin Concent 32 32-36 g/dL Red Cell Distribution Width 13.2 10.0-14.5 % Platelet Count 269 130-400 10^3/uL Mean Platelet Volume 9.3 9.0-12.2 fL Immature Granulocyte % (Auto) 1 % Neutrophils (%) (Auto) 79 H 42-75 % Lymphocytes (%) (Auto) 14 12-44 % Monocytes (%) (Auto) 5 0-12 % Eosinophils (%) (Auto) 1 0-10 % Basophils (%) (Auto) 0 0-10 % Neutrophils # (Auto) 9.2 H 1.8-7.8 10^3/uL Lymphocytes # (Auto) 1.7 1.0-4.0 10^3/uL Monocytes # (Auto) 0.6 0.0-1.0 10^3/uL Eosinophils # (Auto) 0.1 0.0-0.3 10^3/uL Basophils # (Auto) 0.0 0.0-0.1 10^3/uL Immature Granulocyte # (Auto) 0.1 0.0-0.1 10^3/uL Sodium Level 137 135-145 MMOL/L Potassium Level 4.2 3.6-5.0 MMOL/L Chloride Level 98 98-107 MMOL/L Carbon Dioxide Level 27 21-32 MMOL/L Anion Gap 12 5-14 MMOL/L Blood Urea Nitrogen 11 7-18 MG/DL Creatinine 0.78 0.60-1.30 MG/DL Estimat Glomerular Filtration Rate 74 BUN/Creatinine Ratio 14 Glucose Level 119 H 70-105 MG/DL Calcium Level 9.9 8.5-10.1 MG/DL Corrected Calcium 9.7 8.5-10.1 MG/DL Total Bilirubin 0.6 0.1-1.0 MG/DL Aspartate Amino Transf (AST/SGOT) 26 5-34 U/L Alanine Aminotransferase (ALT/SGPT) 26 0-55 U/L Alkaline Phosphatase 57 40-136 U/L Total Creatine Kinase 157 29-168 U/L Total Protein 7.0 6.4-8.2 GM/DL Albumin 4.2 3.2-4.5 GM/DL Urine Color YELLOW Urine Clarity CLEAR Urine pH 7.5 5-9 Urine Specific [place] 1.020 1.016-1.022 Urine Protein NEGATIVE NEGATIVE Urine Glucose (UA) NEGATIVE NEGATIVE Urine Ketones NEGATIVE NEGATIVE Urine Nitrite NEGATIVE NEGATIVE Urine Bilirubin NEGATIVE NEGATIVE Urine Urobilinogen 0.2 < = 1.0 MG/DL Urine Leukocyte Esterase 1+ H NEGATIVE Urine RBC (Auto) NEGATIVE NEGATIVE Urine RBC NONE /HPF Urine WBC 10-25 H /HPF Urine Squamous Epithelial Cells 0-2 /HPF Urine Crystals NONE /LPF Urine Bacteria TRACE /HPF Urine Casts NONE /LPF Urine Mucus MODERATE H /LPF Urine Culture Indicated YES (JOANNE GAO) My Orders Orders - JOANNE GAO Ed Iv/Invasive Line Start (07/06/21 07:30) Ns Iv 500 Ml (Sodium Chloride 0.9%) (07/06/21 07:30) Fentanyl Inj (Sublimaze Injection) (07/06/21 07:30) Cbc With Automated Diff (07/06/21 07:30) Comprehensive Metabolic Panel (07/06/21 07:30) Ua Culture If Indicated (07/06/21 07:30) Catheter(Urinary) Insert & Ass 03,15 (07/06/21 07:30) Hip, Left, 2 Views (07/06/21 07:30) Creatine Kinase (07/06/21 07:34) Chest 1 View, Ap/Pa Only (07/06/21 07:54) Continuous Ekg Monitoring (07/06/21 07:54) Ekg Tracing (07/06/21 07:54) Fentanyl Inj (Sublimaze Injection) (07/06/21 08:15) Urine Culture (07/06/21 08:08) Fentanyl Inj (Sublimaze Injection) (07/06/21 08:45) Ceftriaxone (Rocephin) (07/06/21 09:30) Ceftriaxone (Rocephin) (07/06/21 09:20) Water (Sterile) For Injection (Sterile W (07/06/21 09:20) Fentanyl Inj (Sublimaze Injection) (07/06/21 09:23) (JOANNE GAO) Medications Given in ED Current Medications Medications Dose Ordered Sig/Abhinav Route Start Time Stop Time Status Last Admin Dose Admin Ceftriaxone Sodium 1000 mg/ Sterile Water 10 ml @ 200 mls/hr ONCE ONCE IV 07/06/21 09:30 07/06/21 09:32 DC 07/06/21 09:28 200 MLS/HR Fentanyl Citrate 50 mcg ONCE ONCE IVP 07/06/21 07:30 07/06/21 07:34 DC 07/06/21 07:42 50 MCG Fentanyl Citrate 100 mcg STK-MED ONCE .ROUTE 07/06/21 08:15 07/06/21 08:20 DC 07/06/21 08:23 50 MCG Fentanyl Citrate 100 mcg STK-MED ONCE .ROUTE 07/06/21 09:23 07/06/21 09:26 DC 07/06/21 09:28 100 MCG Sodium Chloride 500 ml @ 0 mls/hr Q0M ONCE IV 07/06/21 07:30 07/06/21 07:34 DC 07/06/21 07:42 500 MLS/HR (JOANNE GAO) Vital Signs/I&O 07/06/21 07/06/21 07:16 08:53 Temp 36.6 Pulse 72 69 Resp 22 16 B/P (MAP) 111/54 (73) 120/57 (73) Pulse Ox 95 97 (JOANNE GAO) Progress Progress Note #1: Time: 07:57 Progress Note I attest that I saw this patient alongside the medical student and agree with his documented history, physical exam and review of systems except as otherwise noted. Plain films of the left femur as well as the chest for preop given she had a fractured femur. EKG and labs for preop. We do not have Ortho available today. There has been great difficulty in transferring patients out for orthopedic injury and we will offer her the opportunity to stay for pain management and see orthopedics on Thursday versus transfer. The patient declined any imaging of her hand. She has been given 50 mcg of fentanyl and will readdress her pain shortly. Progress Note #2: Time: 09:19 Progress Note A second dose of fentanyl for a total of 100 mcg seems to have helped her pain. 5-10 white count on urinalysis so we will give her a dose of Rocephin for presumed UTI. (JOANNE GAO) Initial ECG Impression Date: Jul 06, 2021 Initial ECG Impression Time: 08:00 Initial ECG Rate: 69 Initial ECG Rhythm: Normal Sinus Initial ECG Intervals: Normal Initial ECG Impression: Normal Initial ECG Comparisson: No Previous ECG Available Comment Normal sinus rhythm without clinically relevant ST changes. (JOANNE GAO) Diagnostic Imaging Diagonstic Imaging: Xray Plain Films/CT/US/NM/MRI: chest Comments [facility] [place] NAME: [facility] REC#: [id number] PT STATUS: REG ER : 1955 PHYSICIAN: JOANNE GAO MD ADMIT DATE: 07/06/21/ER Draft Date of Exam:07/06/21 CHEST 1 VIEW, AP/PA ONLY INDICATION: Left hip pain, post fall. TECHNIQUE: Single view chest 8:02 AM. CORRELATION STUDY: None FINDINGS: Rather significant rightward curvature thoracic spine results in distortion chest anatomy. Heart size enlarged, vasculature overall within normal limits. Lung douglas are somewhat hyperinflated but overall clear. No infiltrate. IMPRESSION: 1. Hyperinflated lung douglas. Negative for acute cardiopulmonary abnormality. Dictated on workstation # [id number] Dict: 07/06/21 0837 Trans: 07/06/21 0838 [facility] [id number] Interpreted by: SILVANO NIÑO DO Electronically signed by: Reviewed: Reviewed by Me Diagonstic Imaging: Xray Plain Films/CT/US/NM/MRI: hip (Left) Comments [facility] [place] NAME: ALL BLOCK [facility] REC#: [id number] PT STATUS: REG ER : 1955 PHYSICIAN: JOANNE GAO MD ADMIT DATE: 07/06/21/ER Draft Date of Exam:07/06/21 HIP, LEFT, 2 VIEWS INDICATION: Left hip pain post fall TECHNIQUE: 2 views of the left hip, 7:56 AM. CORRELATION STUDY: 10/10/2019 FINDINGS: There is a relatively nondisplaced intertrochanteric left hip fracture. The femoral head acetabular relationship is maintained. Visualized left hemipelvis unremarkable. IMPRESSION: 1. Nondisplaced intertrochanteric proximal left femur fracture. Dictated on workstation # [id number] Dict: 07/06/21 0834 Trans: 07/06/21 0835 DO [id number] Interpreted by: SILVANO NIÑO DO Electronically signed by: Reviewed: Reviewed by Me (JOANNE GAO) Departure Impression Primary Impression: Fall Qualified Codes: W19.XXXA - Unspecified fall, initial encounter Additional Impressions: Closed left hip fracture Qualified Codes: S72.002A - Fracture of unspecified part of neck of left femur, initial encounter for closed fracture UTI (urinary tract infection) Qualified Codes: N30.00 - Acute cystitis without hematuria Disposition: XF SHT-TRM HOSP Condition: Stable Transfer Transfer Reason: Exceeds level of care (No Ortho Coverage) Time Spoke to Accepting Phy: 08:30 Transfer Progress Notes Discussed the case with Dr. Rehman, ER and she accepts the patient in transfer. Transfer Time: 09:30 Transfer Facility: [place], [place] Method of Transfer: EMS (JOANNE GAO) Departure-Patient Inst. Referrals: EDISON YBARRA MD (PCP/Family) Primary Care Physician MELLY MURGUIA MED STUDENT Jul 06, 2021 07:43 JOANNE GAO Jul 06, 2021 07:54
[2021-07-06 07:50] LABS: ALBUMIN 4.2 GM/DL (3.2-4.5); POTASSIUM 4.2 MMOL/L (3.6-5.0)
[2021-07-06 07:52] LABS: CALCIUM 9.9 MG/DL (8.5-10.1)
[2021-07-06 07:55] LABS: BILIRUBIN,TOTAL 0.6 MG/DL (0.1-1.0)
[2021-07-06 07:56] LABS: CREATININE SERUM 0.78 MG/DL (0.60-1.30)
[2021-07-06] MEDS ORDERED: fentaNYL INJ 100 MCG/2 ML AMP ONE ×2 (08:15→09:23)
[2021-07-06 08:18] LABS: BILIRUBIN,URINE NEGATIVE (NEGATIVE); CLARITY,URINE CLEAR; COLOR,URINE YELLOW; GLUCOSE, URINE (UA) NEGATIVE (NEGATIVE); KETONES,URINE NEGATIVE (NEGATIVE); LEUKOCYTE ESTERASE ,URINE 1+ (NEGATIVE); NITRITE,URINE NEGATIVE (NEGATIVE); PH,URINE 7.5 (5-9); PROTEIN,URINE NEGATIVE (NEGATIVE)
[2021-07-06 08:30] LABS: BACTERIA,URINE TRACE /HPF; SQUAMOUS EPITHELIAL CELL,UR 0-2 /HPF
--- NOTE | 2021-07-06 08:36 | Diagnostic Imaging Report ---
INDICATION: Left hip pain post fall TECHNIQUE: 2 views of the left hip, 7:56 AM. CORRELATION STUDY: 10/10/2019 FINDINGS: There is a relatively nondisplaced intertrochanteric left hip fracture. The femoral head acetabular relationship is maintained. Visualized left hemipelvis unremarkable. IMPRESSION: 1. Nondisplaced intertrochanteric proximal left femur fracture. Dictated by: Dictated on workstation # [id number]
--- NOTE | 2021-07-06 08:38 | Diagnostic Imaging Report ---
INDICATION: Left hip pain, post fall. TECHNIQUE: Single view chest 8:02 AM. CORRELATION STUDY: None FINDINGS: Rather significant rightward curvature thoracic spine results in distortion chest anatomy. Heart size enlarged, vasculature overall within normal limits. Lung douglas are somewhat hyperinflated but overall clear. No infiltrate. IMPRESSION: 1. Hyperinflated lung douglas. Negative for acute cardiopulmonary abnormality. Dictated by: Dictated on workstation # [id number]
[2021-07-06 08:53] VITALS: BP 120/57
[2021-07-06] MEDS ORDERED: cefTRIAXone 1,000 MG VIAL ONE (09:20)
[2021-07-06] MEDS ORDERED: WATER (STERILE) FOR INJECTION 10 ML ONE (09:20)
[2021-07-06] MEDS ORDERED: cefTRIAXone 1,000 MG in WATER (STERILE) FOR INJECTION 10 ML IV ONE (09:30)
== END 2021-07-06 09:34 | disposition short-term general hospital (02) ==
LOC: EDUNIT# 07:13 → ER 07:16
DX: S72.145A Nondisplaced intertrochanteric fracture of left femur, initial encounter for closed fracture (principal); N39.0 Urinary tract infection, site not specified; E03.9 Hypothyroidism, unspecified; E05.00 Thyrotoxicosis with diffuse goiter without thyrotoxic crisis or storm; F17.210 Nicotine dependence, cigarettes, uncomplicated; Z79.82 Long term (current) use of aspirin; Z79.890 Hormone replacement therapy; Z79.899 Other long term (current) drug therapy; W01.198A Fall on same level from slipping, tripping and stumbling with subsequent striking against other object, initial encounter
CPT/HCPCS: 36415; 51702; 71045; 73502; 80053; 81000; 82550; 85025; 87088; 93005

== ENCOUNTER → 2021-07-24 | Outpatient (CLI) | payer MEDICARE, MEDICAID ==
--- NOTE | 2021-07-24 14:08 | Diagnostic Imaging Report ---
INDICATION: Left forearm pain. TIME OF EXAM: 11:08 AM 2 views of forearm were obtained. FINDINGS: The alignment at the elbow and wrist is normal. The radius and ulna are intact. There is slightly prominent anterior fat pad noted at the elbow. IMPRESSION: Slightly prominent anterior fat pad at the elbow but no underlying fracture seen. If there is concern for elbow fracture, dedicated elbow radiographs would be recommended for further evaluation. Dictated by: Dictated on workstation # [id number]
--- NOTE | 2021-07-24 14:11 | Diagnostic Imaging Report ---
INDICATION: Left wrist pain. TIME OF EXAM: 11:11 a.m. FINDINGS: Three views of the left wrist were obtained. There is an ulna minus variant. Distal radius and ulna are intact. Carpus and metacarpals appear intact. No fractures are seen. IMPRESSION: No acute bony abnormality is detected. Dictated by: Dictated on workstation # [id number]
== END ==
LOC: RAD 10:45
PROVIDERS: ATTEND Internal Medicine
DX: M25.532 Pain in left wrist (principal)
CPT/HCPCS: 73090; 73110

== ENCOUNTER → 2021-10-14 | Outpatient (CLI) | payer MEDICARE, MEDICAID ==
--- NOTE | 2021-10-14 11:01 | Diagnostic Imaging Report ---
TECHNIQUE: Live salazar scale and color Doppler ultrasound was performed in the bilateral submandibular regions. REASON FOR EXAM: Lump in the left neck. COMPARISON: None. FINDINGS: A mildly prominent lymph node is seen in the left submandibular region adjacent to the submandibular gland measuring 1.3 x 0.7 x 1.0 cm. This demonstrates preserved fatty hilum and normal reniform shape. No soft tissue mass or fluid collection is seen in the left neck. The bilateral submandibular glands have a normal appearance. No lymphadenopathy is seen in the right submandibular region. IMPRESSION: 1. Mildly prominent lymph node in the left submandibular region, favored to represent a reactive lymph node. No soft tissue mass or fluid collection. 2. Unremarkable sonographic appearance of the submandibular glands. Dictated by: Dictated on workstation # [id number]
== END ==
LOC: RAD 09:30
PROVIDERS: ATTEND Internal Medicine
DX: R22.1 Localized swelling, mass and lump, neck (principal)
CPT/HCPCS: 76536

== ENCOUNTER 2021-10-31 05:32 | Outpatient (RCR) | payer MEDICARE, MEDICAID ==
[~2021-10-31] VITALS: Ht 167.7 cm; Wt 53.6 kg
[~2021-10-31 05:32] MED LIST changes: +BACL10TA PO; +OMEP10SU2 PO
== END 2021-10-31 09:38 | disposition home or self-care (01) ==
LOC: PREOP 05:32
PROVIDERS: ATTEND Internal Medicine
DX: Z01.812 Encounter for preprocedural laboratory examination (principal); R10.13 Epigastric pain; Z20.822 Contact with and (suspected) exposure to COVID-19
CPT/HCPCS: 87636

== ENCOUNTER → 2021-11-04 | Day surgery (SDC) | payer MEDICARE, MEDICAID ==
--- NOTE | 2021-10-29 17:24 | HISTORY AND PHYSICAL ---
DATE OF SERVICE: 11/04/2021 PANENDOSCOPY HISTORY AND PHYSICAL HISTORY OF PRESENT ILLNESS: The patient is a 66-year-old white female referred by Dr. Bell for diagnostic EGD and screening. She reports epigastric and lower precordial chest discomfort predominantly after meals 30 minutes to two hours, but episodes can last the better part of a day. She has been on 40 mg of omeprazole and continues to have pain. As I recall, sometimes she will have vomiting, but predominantly it is just pain. She has had no hematemesis. Denies melena, bright red blood per rectum or change in weight. She also denies dysphagia. She had undergone EGD and colonoscopy [place] [address] Mosqueda that revealed no evidence for neoplasia in regards to her colonoscopy. She did have internal hemorrhoids and few diverticulum. She had evidence for nonerosive esophagitis to visual inspection and biopsy of her GE junction was compatible with this as well without evidence for peptic ulcer disease at that time. She continues to smoke, has a history of malnutrition and is unsure whether or not there has been any recent weight loss. PAST MEDICAL HISTORY: Significant for major depressive disorder, anxiety, osteoporosis. Reported history of rheumatoid arthritis for which she is not currently requiring any DMARD therapy. PAST SURGICAL HISTORY: She had hysterectomy for benign reasons at the age of 25. Has had bilateral cataract extraction in 2019 and had orbital decompression for unclear reasons 4 years ago. SOCIAL HISTORY: At this point, she predominantly vapes in regards to smoking status with occasional social alcohol use. She is . FAMILY HISTORY: She is not aware of any family history for GI tract malignancy. Sister had lung cancer, was a smoker as was her father and she reports her mother all had lung cancer. Mother also had heart disease. She has had one brother who suffered a heart attack in his 60s. REVIEW OF SYSTEMS: CONSTITUTIONAL: Denies night sweats, chills or fever. Thinks that her weight has been stable, reporting that she has been thin for some time. RESPIRATORY: Denies shortness of breath, cough or wheezing. CARDIOVASCULAR: Denies chest pain, palpitations, syncope, presyncope or dyspnea. GASTROINTESTINAL: As noted in the HPI. PHYSICAL EXAMINATION: GENERAL: Reveals a thin, chronically ill white female who did not appear to be in acute distress. VITAL SIGNS: Blood pressure 110/78. HEENT: Unremarkable. Sclerae nonicteric. NECK: Reveals a proximal 1 cm soft submandibular mass without any other neck abnormalities. CHEST: Clear to auscultation. CARDIOVASCULAR: Reveals a regular rate and rhythm without murmur, S3 or S4. ABDOMEN: Soft, supple. Mild epigastric discomfort to palpation is present without rebound or guarding. No mass or organomegaly noted. No bruits noted. No evidence for abdominal aortic aneurysm to palpation. EXTREMITIES: Reveal no cyanosis, clubbing or edema. ASSESSMENT AND PLAN: 1. The patient set up for diagnostic EGD due to epigastric and lower precordial chest pain refractory to PPI therapy as well as routine screening colonoscopy. Prep instructions with the Suprep kit were given and questions were answered. Electronic medical record reviewed. 2. Left submandibular mass with sonogram and physical exam most compatible with reactive node being monitored conservatively. Job ID: [id number] DocumentID: [id number] Dictated Date: 10/29/2021 08:25:01 Production Engine Repairer Date: 10/29/2021 09:24:11 Dictated By: KIKI BARRETO MD
[~2021-11-04] VITALS: Ht 167.7 cm; Wt 53.6 kg
[~2021-11-04] MED LIST changes: +HURRICAINE EXT TUBE (BENZOCAINE) XX PRN; +LACTATED RINGERS 1,000 ML IV STA; +LIDOCAINE JELLY 2% 6 ML SYRINGE MM PRN; +MIDAZOLAM 2 MG/2 ML (VERSED) VIAL ONE; +PROPOFOL INJECTION 50 ML IV ONE
[2021-11-04 07:27] VITALS: BP 125/82
--- NOTE | 2021-11-04 07:37 | Pre-Op Note & Conscious Sedat ---
Pre-Operative Progress Note H&P Reviewed The H&P was reviewed, patient examined and no changes noted. Date H&P Reviewed: Nov 04, 2021 Time H&P Reviewed: 07:37 Conscious Sedation Pre-Proced ASA Score 3 For ASA 3 and 4: Consider anesthesia and medical clearance. Also, for patients with a history of failed moderate sedation consider anesthesia. Airway Lungs Heart ASA score ASA 1: a normal healthy patient ASA 2: a patient with a mild systemic disease (mid diabetes, controlled hypertension, obesity ASA 3: a patient with a severe systemic disease that limits activity (angina, COPD, prior Myocardial infarction) ASA 4: a patient with an incapacitating disease that is a constant threat to life (CHF, renal failure) ASA 5: a moribund patient not expected to survive 24 hrs. (ruptured aneurysm) ASA 6: a declared brain- patient whose organs are being harvested. For emergent operations, add the letter E after the classification Mallampati Classification Grade 2 Sedation Plan Analgesia, Amnesia, Plan communicated to team members, Discussed options with patient/fam, Discussed risks with patient/fam The patient is an appropriate candidate to undergo the planned procedure, sedation, and anesthesia. The patient immediately re-assessed prior to indication. KIKI BARRETO MD Nov 04, 2021 07:37
[2021-11-04 08:20] VITALS: BP 117/59
[2021-11-04 08:25] VITALS: BP 156/80
[2021-11-04 08:55] VITALS: BP 134/71
--- NOTE | 2021-11-04 09:24 | Anesthesia-General Post-Op ---
MAC Patient Condition Mental Status/LOC: Same as Preop Cardiovascular: Satisfactory Nausea/Vomiting: Absent Respiratory: Satisfactory Pain: Controlled Complications: Absent Post Op Complications Complications None Follow Up Care/Instructions Patient Instructions None needed. Anesthesiology Discharge Order Discharge Order Patient is doing well, no complaints, stable vital signs, no apparent adverse anesthesia problems. No complications reported per nursing. KEYLA CHAVEZ CRNA Nov 04, 2021 09:24
--- NOTE | 2021-11-04 13:08 | OPERATIVE REPORT ---
DATE OF SERVICE: PANENDOSCOPY SUMMARY EGD was performed for epigastric and left upper quadrant abdominal pain with screening colonoscopy. DESCRIPTION OF PROCEDURE: The patient was placed in the left lateral decubitus position. The endoscope was inserted in the oral cavity and under direct visualization, esophagus was intubated. The endoscope was passed down the esophagus through stomach and the second portion of the duodenum. A careful inspection was made as the endoscope was withdrawn. FINDINGS: The posterior pharynx, epiglottis, arytenoid aperture and true and false vocal folds were unremarkable on visual inspection. Proximal, mid and distal esophagus were unremarkable as well except for evidence for approximate 2 cm hiatal hernia. There was no evidence for erosive esophagitis. The Z line was distinct and unremarkable and no evidence for Garcia's change was noted. The cardia, fundus, antrum, pylorus, pyloric channel, duodenal bulb and second portion of duodenum were unremarkable on visual inspection. ASSESSMENT: An approximate 2 cm hiatal hernia was present with evidence to suggest lower esophageal sphincter laxity was present. There is, however, no evidence for erosive esophagitis and no Garcia's change. This was an otherwise normal EGD. Non-medication antireflux measures were discussed with the patient and she was advised to continue proton pump inhibitor therapy. We then proceeded with colonoscopy. DESCRIPTION OF PROCEDURE: The patient was placed in the left lateral decubitus position. Prior to undergoing colonoscopy, digital rectal evaluation was performed. Anal sphincter tone was normal and the perianal reflexes intact. No abnormalities were noted on digital inspection of anal canal or distal rectal vault. The colonoscope was then inserted into the rectum and under direct visualization advanced to cecum. The cecum was identified by identification of the ileocecal valve and cecal strap. Photographic documentation was obtained. Careful inspection was made as colonoscope withdrawn. Quality of prep was good. FINDINGS: There was no evidence for internal or external hemorrhoids and the rectum, sigmoid colon, descending colon, splenic flexure, transverse colon, hepatic flexure, ascending colon, and cecum were unremarkable. No evidence for diverticular disease, neoplasia or vascular malformation. ASSESSMENT AND PLAN: Normal colonoscopy to the cecum. We would advocate consideration for repeat screening colonoscopy in 10 years. The patient was reassured by today's findings. I thank you for the referral of this pleasant lady. CC: Gasper Bell -- requested, unable to deliver. Job ID: [id number] DocumentID: [id number] Dictated Date: 11/04/2021 08:27:53 Space Officer Date: 11/04/2021 13:07:18 Dictated By: KIKI BARRETO MD [facility]
== END ==
LOC: ENDO 06:47
PROVIDERS: ATTEND Internal Medicine
DX: Z12.11 Encounter for screening for malignant neoplasm of colon (principal); R10.13 Epigastric pain; K44.9 Diaphragmatic hernia without obstruction or gangrene; K21.9 Gastro-esophageal reflux disease without esophagitis; F32.9 Major depressive disorder, single episode, unspecified; F41.9 Anxiety disorder, unspecified; F17.210 Nicotine dependence, cigarettes, uncomplicated; Z79.899 Other long term (current) drug therapy
CPT/HCPCS: 43235; G0121

== ENCOUNTER → 2021-12-10 | Outpatient (CLI) | payer MEDICARE, MEDICAID ==
[~2021-12-10] MED LIST changes: -HURRICAINE EXT TUBE (BENZOCAINE) XX PRN; -LACTATED RINGERS 1,000 ML IV STA; -LIDOCAINE JELLY 2% 6 ML SYRINGE MM PRN; -MIDAZOLAM 2 MG/2 ML (VERSED) VIAL ONE; -PROPOFOL INJECTION 50 ML IV ONE
== END ==
LOC: LABNPT 09:10
PROVIDERS: ATTEND Ophthalmology
DX: Z01.812 Encounter for preprocedural laboratory examination (principal); Z20.822 Contact with and (suspected) exposure to COVID-19
CPT/HCPCS: 87635

== ENCOUNTER → 2022-01-23 | Outpatient (CLI) | payer MEDICARE, MEDICAID ==
[2022-01-23 16:18] LABS: CREATINE KINASE 88 U/L (29-168)
== END ==
LOC: CARD 15:30
PROVIDERS: ATTEND Nurse Practitioner Family
DX: R07.9 Chest pain, unspecified (principal)
CPT/HCPCS: 36415; 82550; 84484; 93005

== ENCOUNTER → 2022-02-13 | Outpatient (CLI) | payer MEDICARE, MEDICAID ==
[~2022-02-13] VITALS: Ht 167 cm; Wt 52.0 kg
[~2022-02-13] MED LIST changes: +CATHETER FLUSH 10 ML SYR IVP PRN; +REGADENOSON 0.4 MG/5 ML SYR (LEXISCAN) IV ONE
[2022-02-13 13:21] VITALS: BP 132/93
--- NOTE | 2022-02-15 18:50 | NUCLEAR STRESS TEST ---
REGADENOSON NUCLEAR STRESS Date of procedure: 02/12/2021. Primary care provider: Gasper Bell MD Admitting physician: Aung Mejias Jr., MD. INDICATION: Abnormal electrocardiogram. BASELINE ELECTROCARDIOGRAM: Sinus bradycardia at 59 bpm with possible old anterior myocardial infarction. STRESS TEST PROCEDURE: The patient was administered 0.4 mg of intravenous Regadenoson. The resting heart rate was 59 bpm and the peak heart rate was 122 bpm. The resting blood pressure was 132/93 mmHg and the minimum blood pressure was 132/93 mmHg. This represents a normal heart rate and a blunted blood pressure response to Regadenoson. The test was stopped due to the protocol. There was no chest discomfort during the test. There were isolated premature supraventricular complexes during the test. There were no significant stress induced electrocardiogram changes. NUCLEAR PROCEDURE: The patient was administered 10.8 mCi of intravenous technetium 99m Tetrofosmin at rest for the rest images. The patient was subsequently administered 29.7 mCi of intravenous technetium 99m Tetrofosmin at peak stress for the stress images. Following an appropriate wait after each injection, imaging was obtained. The images were subsequently processed and reformatted in the usual views. Gated imaging was obtained. The image quality was adequate with a mild degree of gastrointestinal attenuation artifact. CT attenuation correction was used as a adjunct to standard imaging during the rest images but was not obtained during stress imaging. Both the corrected and uncorrected images were reviewed for interpretation. NUCLEAR RESULTS: There was a small, mild intensity, predominantly fixed apical defect with a minimal amount of inducible ischemia. There was normal left ventricular chamber size with an end-diastolic volume of 83 mL and an end- systolic volume of 29 mL. There was no evidence of transient ischemic dilatation. The TID ratio was 1.1. There was normal wall motion in all segments with a calculated ejection fraction of 64%. IMPRESSION: 1. Normal heart rate and a blunted blood pressure response to regadenoson. 2. There was no chest discomfort or electrocardiogram changes during the test. 3. There were isolated premature supraventricular complexes during the test. 4. There was a small, mild intensity, predominantly fixed apical defect with a minimal amount of inducible ischemia. 5. There was normal wall motion in all segments with a calculated ejection fraction of 64%. 5. This is an abnormal result however represents an overall low risk for possible future coronary ischemic events. Certain portions of this document may have been dictated utilizing voice recognition technology. Inherent to this technology, typographical and grammatical errors may exist. As much as I am diligent to identify and correct these mistakes, some errors may remain in the document. AUNG MEJIAS JR, MD Feb 15, 2022 18:50
== END ==
LOC: CARD 11:30
PROVIDERS: ATTEND Internal Medicine Cardiovascular Disease
DX: I51.7 Cardiomegaly (principal); I35.8 Other nonrheumatic aortic valve disorders
CPT/HCPCS: 78452; 93017; 93306; A9502

== ENCOUNTER → 2022-03-19 | Outpatient (CLI) | payer MEDICARE, MEDICAID ==
[~2022-03-19] MED LIST changes: -CATHETER FLUSH 10 ML SYR IVP PRN; -REGADENOSON 0.4 MG/5 ML SYR (LEXISCAN) IV ONE
[2022-03-19 13:55] LABS: CHOLESTEROL 189 MG/DL (< 200); HDL CHOLESTEROL 77 MG/DL (40-60); TRIGLYCERIDES 54 MG/DL (<150); VLDL CHOLESTEROL 11 MG/DL (5-40)
== END ==
LOC: LABNPT 13:32
PROVIDERS: ATTEND Internal Medicine Cardiovascular Disease
DX: R07.9 Chest pain, unspecified (principal); R94.31 Abnormal electrocardiogram [ECG] [EKG]; R94.39 Abnormal result of other cardiovascular function study; G89.29 Other chronic pain; F17.210 Nicotine dependence, cigarettes, uncomplicated; Z71.89 Other specified counseling
CPT/HCPCS: 80061

== ENCOUNTER → 2022-03-21 | Outpatient (CLI) | payer MEDICARE, MEDICAID ==
--- NOTE | 2022-03-21 14:58 | Diagnostic Imaging Report ---
INDICATION: Low back pain. TIME OF EXAM: 11:52 AM Three views of the lumbar spine demonstrate left convexity scoliotic curvature. There is normal lordotic curvature. There may be minimal retrolisthesis of L2 on L3. There appears to be significant degenerative disc disease at L1-L2, and L2-L3 levels with disc space narrowing and marginal spurring. There is also a moderate amount of disc space narrowing at the L5-S1 level. No acute compression fracture is identified. IMPRESSION: Lumbar spondylosis and scoliosis. No acute bony abnormality is detected. Dictated by: Dictated on workstation # [id number]
== END ==
LOC: RAD 11:40
PROVIDERS: ATTEND Nurse Practitioner Family
DX: M47.816 Spondylosis without myelopathy or radiculopathy, lumbar region (principal); M41.86 Other forms of scoliosis, lumbar region
CPT/HCPCS: 72100

== ENCOUNTER → 2022-04-07 | Outpatient (CLI) | payer MEDICARE, MEDICAID ==
--- NOTE | 2022-04-07 12:02 | Diagnostic Imaging Report ---
PROCEDURE: MRI lumbar spine. TECHNIQUE: Multiplanar, multisequence MRI of the lumbar spine was performed without contrast. INDICATION: Degenerative disc disease. COMPARISON: MRI of the lumbar spine from 12/09/2019. FINDINGS: Unchanged severe levoscoliosis lumbar spine with apex at L2 and a Corona angle measuring approximately 45 degrees. No acute fracture within the lumbar spine. No concerning marrow replacing process. Unchanged mixed Modic type I and type II endplate changes at L2-L3 and L1-L2. The distal thoracic cord is normal in appearance. No extradural fluid collection is appreciated. Mild fatty infiltration in the paravertebral musculature is unchanged and likely from disuse. L1-L2: Unchanged diffuse disc bulge and mild ligamentum flavum hypertrophy. There is no resultant spinal canal stenosis. Due to scoliotic curvature, there is unchanged moderate right neural foraminal stenosis. No left foraminal stenosis. L2-L3: Disc bulge, facet osteoarthritis and ligamentum flavum thickening are all unchanged. There is severe right neural foraminal stenosis unchanged. No spinal canal or left neural foraminal stenosis. L3-L4: Diffuse disc bulge with left greater than right facet osteoarthritis and ligamentum flavum hypertrophy. Kllb-[id number] spinal canal stenosis is unchanged but there is no mass effect on the nerve roots and lateral recess. Moderate bilateral neural foraminal narrowing is unchanged as well. L4-L5: Diffuse disc bulge with facet and uncovertebral joint hypertrophy are unchanged. No spinal canal stenosis has developed. There remains severe left and mild right neural foraminal stenosis. L5-S1: No change in diffuse disc bulge with coexistent left paracentral disc protrusion. There is no mass effect on the nerve roots in the lateral recess. Facet osteoarthritis is unchanged. No spinal canal stenosis has developed. Moderate left and mild right foraminal stenosis is unchanged. IMPRESSION: 1. No fracture lumbar spine. 2. Multilevel degenerative changes and severe levoscoliosis are unchanged since examination of 12/09/2021. Dictated by: Dictated on workstation # [id number]
== END ==
LOC: RAD 09:06
PROVIDERS: ATTEND Nurse Practitioner Family
DX: M51.36 Other intervertebral disc degeneration, lumbar region (principal); M47.816 Spondylosis without myelopathy or radiculopathy, lumbar region; M41.86 Other forms of scoliosis, lumbar region
CPT/HCPCS: 72148

== ENCOUNTER → 2022-08-07 | Outpatient (CLI) | payer MEDICARE, MEDICAID ==
--- NOTE | 2022-08-07 13:06 | Diagnostic Imaging Report ---
History: Smoking, peripheral arterial disease TECHNIQUE: Ankle-brachial indices obtained of the bilateral lower extremities COMPARISON: None FINDINGS: The right ankle-brachial index is 1.25 and the left is 1.34. The right toe brachial index is 0.87 and the left is 0.95. IMPRESSION: 1. Normal ankle-brachial indices bilaterally. Dictated by: Dictated on workstation # [id number]
== END ==
LOC: RAD 09:00
PROVIDERS: ATTEND Internal Medicine
DX: I73.9 Peripheral vascular disease, unspecified (principal); Z87.891 Personal history of nicotine dependence
CPT/HCPCS: 93922

== ENCOUNTER → 2022-10-13 | Outpatient (CLI) | payer MEDICARE, MEDICAID ==
--- NOTE | 2022-10-13 13:14 | Diagnostic Imaging Report ---
INDICATION: Routine screening. COMPARISON: 10/10/2019 and 08/31/2017. TECHNIQUE: 2D and 3D bilateral screening mammography was performed with CAD. FINDINGS: Both breasts are heterogeneously dense, limiting the sensitivity of mammography. No mass or malignant-appearing microcalcifications are seen. The axillae are unremarkable. IMPRESSION: No mammographic features suspicious for malignancy are identified. ACR BI-RADS Category 1: Negative. Result letter will be mailed to the patient. Note: At least 10% of breast cancer is not imaged by mammography. Dictated by: Dictated on workstation # [id number]
== END ==
LOC: RAD 08:45
PROVIDERS: ATTEND Physician Assistant
DX: Z12.31 Encounter for screening mammogram for malignant neoplasm of breast (principal)
CPT/HCPCS: 77063; 77067

== ENCOUNTER 2022-11-17 13:05 | Emergency (ER) | payer MEDICARE, MEDICAID ==
[~2022-11-17] VITALS: Ht 170 cm; Wt 51.2 kg
--- NOTE | 2022-11-17 14:10 | ED Respiratory ---
General Chief Complaint: Respiratory Problems Stated Complaint: CHEST CONGESTION | PHLEGM Nursing Triage Note: PT PRESENTS TO ED VIA POV FROM HOME WITH COMPLAINTS OF SOA, PRODUCTIVE COUGH, CHILLS, AND HYPOXIA WITH HOME READINGS 78-88% AT HOME. PT REPORTS S/S SINCE THURSDAY. PT ALSO REPORTS NEGATIVE HOME COVID TEST. History of Present Illness Date Seen by Provider: Nov 17, 2022 Time Seen by Provider: 13:10 Initial Comments 67 year old female (past smoker) reports SOA, increased phlegm with changes in color (brown), low SaO2 at home 80-94%. Temp 99-100 at home, yesterday. Friends with known COVID in the last 2 weeks. SaO2 88% on presentation, O2 2 L per NC and improved to 95-98%. Timing/Duration: intermittent Severity: mild Prior Episodes/Possible Cause: occasional episodes Associated Symptoms: No chest pain/soreness; cough, fever/chills, shortness of breath (chronic but worse over the last week) Allergies and Home Medications Allergies Coded Allergies: prednisone (Verified Adverse Reaction, Mild, WRIST/JOINT PAIN, 04/01/18) Patient Home Medication List Home Medication List Reviewed: Yes Albuterol Sulfate (Ventolin Hfa) 90 Mcg Hfa.aer.ad, 2 PUFF INH Q4H Prescribed by: ARNAV HARDING on 11/17/22 1535 Alprazolam (Alprazolam) 2 Mg Tablet, 2 MG PO BID, (Reported) Entered as Reported by: DOUGLAS VILLANUEVA on 04/01/18 1056 Aripiprazole (Abilify) 10 Mg Tablet, 10 MG PO DAILY, (Reported) Entered as Reported by: DOUGLAS VILLANUEVA on 04/01/18 1056 Aripiprazole (Abilify) 30 Mg Tablet, 30 MG PO DAILY, (Reported) Entered as Reported by: DOUGLAS VILLANUEVA on 04/01/18 1056 Baclofen (Baclofen) 10 Mg Tablet, 10 MG PO BID, (Reported) Entered as Reported by: FRANK DAWN on 10/30/21 1321 Dexamethasone (Dexamethasone) 6 Mg Tablet, 6 MG PO DAILY Prescribed by: ARNAV HARDING on 11/17/22 1540 Doxycycline Hyclate (Doxycycline Hyclate) 100 Mg Tablet, 100 MG PO BID Prescribed by: ARANV HARDING on 11/17/22 1535 Escitalopram Oxalate (Lexapro) 10 Mg Tablet, 10 MG PO DAILY, (Reported) Entered as Reported by: DOUGLAS VILLANUEVA on 04/01/18 1056 Levothyroxine Sodium (Levothyroxine Sodium) 100 Mcg Tablet, 100 MCG PO DAILY, (Reported) Entered as Reported by: DOUGLAS VILLANUEVA on 04/01/18 1056 Omeprazole Magnesium (Prilosec) 10 Mg Suspdr.pkt, 10 MG PO DAILY, (Reported) Entered as Reported by: FRANK DAWN on 10/30/21 1337 Review of Systems Review of Systems Constitutional: see HPI, fever, malaise EENTM: see HPI, no symptoms reported Respiratory: see HPI, cough; No hemoptysis; phlegm, short of breath Cardiovascular: no symptoms reported, see HPI Gastrointestinal: No abdominal pain; nausea (intermittently, none at this time) All Other Systems Reviewed Negative Unless Noted: Yes Past Lnglbod-Vgjujr-Elkuyn Hx Patient Social History Tobacco Use?: No Smoking Status: Former Smoker Substance use?: Yes Substance type: Marijuana Substance frequency: Once in a while Alcohol Use?: No Pt feels they are or have been: No Immunizations Up To Date Tetanus Booster (TDap): Unknown First/Initial COVID19 Vaccinat: YES Second COVID19 Vaccination Brooks: YES Third COVID19 Vaccination Date: AUGUST Seasonal Allergies Seasonal Allergies: No Past Medical History Surgery/Hospitalization HX: PMH: GRAVES DISEASE, OSTEOPOROSIS, CHRONIC BACK PAIN, Surgeries: Yes Eye Surgery, Hysterectomy, Orthopedic, Thyroidectomy Respiratory: No Cardiac: No Neurological: No Reproductive Disorders: No [employer] History: Hysterectomy Genitourinary: No Gastrointestinal: Yes (HX OF ULCER) Gastroesophageal Reflux Musculoskeletal: No Chronic Back Pain Endocrine: Yes (GRAVES DISEASE) Hypothyroidsim Cancer: No Psychosocial: No Anxiety, Depression Integumentary: No Blood Disorders: No Family Medical History Reviewed Nursing Family Hx Physical Exam Vital Signs - First Documented 11/17/22 13:10 Temp 37.1 Pulse 92 Resp 16 B/P (MAP) 106/62 (77) Pulse Ox 89 O2 Delivery Room Air Capillary Refill : Less Than 3 Seconds Height: 5'6.00" Weight: 136lbs. 0.0oz. [id number]; 17.00 BMI Method:Stated General Appearance: WD/WN, no apparent distress Respiratory: chest non-tender, no respiratory distress, no accessory muscle use, decreased breath sounds; No rhonchi, No wheezing Cardiovascular: normal peripheral pulses, regular rate, rhythm Progress/Results/Core Measures Suspected Sepsis SIRS Temperature: Pulse: 92 Respiratory Rate: 16 Laboratory Tests 11/17/22 14:11: White Blood Count 13.2H Blood Pressure 106 /62 Mean: 77 Laboratory Tests 11/17/22 14:11: Creatinine 0.71, Platelet Count 223, Total Bilirubin 0.6 Results/Orders Lab Results Laboratory Tests Test 11/17/22 13:25 11/17/22 14:11 Range/Units Influenza Type A (RT-PCR) Not Detected Not Detecte Influenza Type B (RT-PCR) Not Detected Not Detecte SARS-CoV-2 RNA (RT-PCR) Not Detected Not Detecte White Blood Count 13.2 H 4.3-11.0 10^3/uL Red Blood Count 3.84 3.80-5.11 10^6/uL Hemoglobin 12.4 11.5-16.0 g/dL Hematocrit 38 35-52 % Mean Corpuscular Volume 99 80-99 fL Mean Corpuscular Hemoglobin 32 25-34 pg Mean Corpuscular Hemoglobin Concent 33 32-36 g/dL Red Cell Distribution Width 13.4 10.0-14.5 % Platelet Count 223 130-400 10^3/uL Mean Platelet Volume 10.2 9.0-12.2 fL Immature Granulocyte % (Auto) 0 % Neutrophils (%) (Auto) 80 H 42-75 % Lymphocytes (%) (Auto) 11 L 12-44 % Monocytes (%) (Auto) 9 0-12 % Eosinophils (%) (Auto) 0 0-10 % Basophils (%) (Auto) 0 0-10 % Neutrophils # (Auto) 10.5 H 1.8-7.8 10^3/uL Lymphocytes # (Auto) 1.4 1.0-4.0 10^3/uL Monocytes # (Auto) 1.2 H 0.0-1.0 10^3/uL Eosinophils # (Auto) 0.0 0.0-0.3 10^3/uL Basophils # (Auto) 0.0 0.0-0.1 10^3/uL Immature Granulocyte # (Auto) 0.1 0.0-0.1 10^3/uL Sodium Level 137 135-145 MMOL/L Potassium Level 3.5 L 3.6-5.0 MMOL/L Chloride Level 97 L 98-107 MMOL/L Carbon Dioxide Level 31 21-32 MMOL/L Anion Gap 9 5-14 MMOL/L Blood Urea Nitrogen 13 7-18 MG/DL Creatinine 0.71 0.60-1.30 MG/DL Estimat Glomerular Filtration Rate 93 BUN/Creatinine Ratio 18 Glucose Level 145 H 70-105 MG/DL Calcium Level 9.1 8.5-10.1 MG/DL Corrected Calcium 9.3 8.5-10.1 MG/DL Total Bilirubin 0.6 0.1-1.0 MG/DL Aspartate Amino Transf (AST/SGOT) 17 5-34 U/L Alanine Aminotransferase (ALT/SGPT) 13 0-55 U/L Alkaline Phosphatase 82 40-136 U/L C-Reactive Protein High Sensitivity 14.88 H 0.00-0.50 MG/DL Total Protein 6.3 L 6.4-8.2 GM/DL Albumin 3.7 3.2-4.5 GM/DL My Orders Orders - ARNAV HARDING Covid 19 Inhouse Test (11/17/22 13:12) Influenza A And B By Pcr (11/17/22 13:12) Chest Pa/Lat (2 View) (11/17/22 14:02) Cbc With Automated Diff (11/17/22 14:02) Comprehensive Metabolic Panel (11/17/22 14:02) Hs C Reactive Protein (11/17/22 14:02) Albuterol/Ipra Inhalation Soln (Duoneb I (11/17/22 14:43) Svn Small Volume Nebulizer (11/17/22 14:43) Vital Signs/I&O 11/17/22 13:10 Temp 37.1 Pulse 92 Resp 16 B/P (MAP) 106/62 (77) Pulse Ox 89 O2 Delivery Room Air Capillary Refill : Less Than 3 Seconds Blood Pressure Mean: 77 Progress Note : Time: 13:10 Progress Note Patient assessed, will check COVID/Flu, chest x-ray and labs. 1400 SaO2 98% on 1L per NC, will try room air and monitor. 1410 SaO2 >94% on RA. 1440 Chest Xray neg for acute findings. Will give DuoNeb breathing treatment. SaO2 88-94% but talking to friend, will keep on 1L O2 per NC. 1500 patient has required O2 1L at rest and 2L with activity to maintain SaO2 > 92%. 1530 reviewed labs, d/c instructions and return precautions reviewed. Will have Home Oxygen delivered to her house. Diagnostic Imaging Diagonstic Imaging: Xray Plain Films/CT/US/NM/MRI: chest Comments NAME: [facility] REC#: [id number] PT STATUS: REG ER : 1955 PHYSICIAN: ARNAV HARDING ADMIT DATE: 11/17/22/ER Draft Date of Exam:11/17/22 CHEST PA/LAT (2 VIEW) EXAMINATION: Chest, 2 views. HISTORY: Short of breath. COMPARISON: 07/06/2021. FINDINGS: The lungs are hyperinflated. There is dextroscoliosis of the thoracic spine. No edema or pneumonia. No pleural effusion or pneumothorax. The heart size is normal. IMPRESSION: Hyperinflated but clear lungs. Dictated on workstation # [id number] Dict: 11/17/22 1422 Trans: 11/17/22 1431 [id number] Interpreted by: ALANNA MAHMOOD MD Electronically signed by: Departure Impression Primary Impression: Cough Qualified Codes: R05.3 - Chronic cough Additional Impressions: COPD exacerbation Hypoxemia Disposition: HOME, SELF-CARE Condition: Stable Departure-Patient Inst. Decision time for Depature: 15:00 Referrals: ALANNA BURKETT MD (PCP) Primary Care Physician Patient Instructions: Exacerbation of COPD (DC), Oxygen Therapy, Adult (DC) Add. Discharge Instructions: Use inhaler every 4 hours. Take Antibiotics and Steroids, as prescribed. Use Oxygen 1-2 liters, at all times for the next 3-5 days. Adjust to keep SaO2 > 94%. If you are needing more than 2 Liters, contact Dr. Burkett or return to Emergency Dept. Schedule follow up with Dr. Burkett for of this week. Increase water intake, 16 oz every 2 hours while awake. Return to Emergency Dept if symptoms worsen or new urgent health care problem. All discharge instructions reviewed with patient and/or family. Voiced understanding. Scripts Dexamethasone (Dexamethasone) 6 Mg Tablet 6 MG PO DAILY, #6 TAB 0 Refills Prov: ARNAV HARDING 11/17/22 Albuterol Sulfate (Ventolin Hfa) 90 Mcg Hfa.aer.ad 2 PUFF INH Q4H, #1 EA 0 Refills 1 PUFF = 90 MCG Prov: ARNAV HARDING 11/17/22 Doxycycline Hyclate (Doxycycline Hyclate) 100 Mg Tablet 100 MG PO BID, #20 TAB 0 Refills Prov: ARNAV HARDING 11/17/22 ARNAV HARDING Nov 17, 2022 14:10
[2022-11-17 14:22] LABS: BASOPHILS % (AUTO) 0 % (0-10); EOSINOPHILS % (AUTO) 0 % (0-10); HEMATOCRIT 38 % (35-52); HEMOGLOBIN 12.4 g/dL (11.5-16.0); LYMPHOCYTES # (AUTO) 1.4 10^3/uL (1.0-4.0); LYMPHOCYTES % (AUTO) 11 % (12-44); MEAN CORPUSCULAR HEMOGLOBIN 32 pg (25-34); MEAN CORPUSCULAR HGB CONC 33 g/dL (32-36); MEAN CORPUSCULAR VOLUME 99 fL (80-99); MEAN PLATELET VOLUME 10.2 fL (9.0-12.2); MONOCYTES # (AUTO) 1.2 10^3/uL (0.0-1.0); MONOCYTES % (AUTO) 9 % (0-12); NEUTROPHILS # (AUTO) 10.5 10^3/uL (1.8-7.8); NEUTROPHILS % (AUTO) 80 % (42-75); PLATELET COUNT 223 10^3/uL (130-400); WHITE BLOOD COUNT 13.2 10^3/uL (4.3-11.0)
--- NOTE | 2022-11-17 14:32 | Diagnostic Imaging Report ---
EXAMINATION: Chest, 2 views. HISTORY: Short of breath. COMPARISON: 07/06/2021. FINDINGS: The lungs are hyperinflated. There is dextroscoliosis of the thoracic spine. No edema or pneumonia. No pleural effusion or pneumothorax. The heart size is normal. IMPRESSION: Hyperinflated but clear lungs. Dictated by: Dictated on workstation # [id number]
[2022-11-17] MEDS ORDERED: RT-ALBUTEROL/IPRATROPIUM 3 ML (DUONEB) VIAL INH STA (14:43)
[2022-11-17 14:44] LABS: ALBUMIN 3.7 GM/DL (3.2-4.5); BILIRUBIN,TOTAL 0.6 MG/DL (0.1-1.0); CALCIUM 9.1 MG/DL (8.5-10.1); CREATININE SERUM 0.71 MG/DL (0.60-1.30); POTASSIUM 3.5 MMOL/L (3.6-5.0); TOTAL PROTEIN 6.3 GM/DL (6.4-8.2)
[2022-11-17] MEDS ORDERED: ALBU8.5H6 INH (15:35)
[2022-11-17] MEDS ORDERED: DOXY100T2 PO (15:35)
[2022-11-17] MEDS ORDERED: DEXA6TAB PO (15:40)
[2022-11-17 15:45] VITALS: BP 120/60
== END 2022-11-17 15:46 | disposition home or self-care (01) ==
LOC: EDUNIT# 13:05 → ER 13:07
DX: J44.1 Chronic obstructive pulmonary disease with (acute) exacerbation (principal); R09.02 Hypoxemia; Z87.891 Personal history of nicotine dependence; Z88.8 Allergy status to other drugs, medicaments and biological substances; Z20.822 Contact with and (suspected) exposure to COVID-19
CPT/HCPCS: 36415; 71046; 80053; 85025; 86141; 87636

== ENCOUNTER → 2022-11-25 | Outpatient (CLI) | payer MEDICARE, MEDICAID ==
[~2022-11-25] MED LIST changes: +ALBU8.5H6 INH; +DEXA6TAB PO; +DOXY100T2 PO
--- NOTE | 2022-11-25 14:57 | Diagnostic Imaging Report ---
INDICATION: Postmenopausal state COMPARISON: 05/22/2020 FINDINGS: AP Spine L1-L4: [BMD (g/cm2): 1.107] [T-Score: -0.8] [Z-Score: 1.3] [BMD Previous: 0.829] [BMD % Change: 33.5] LT Hip Neck: [BMD (g/cm2): na] [T-Score: na] [Z-Score: na] LT Hip Total: [BMD (g/cm2):na] [T-Score:na] [Z-Score: na] [BMD Previous: na] [BMD % Change: na] RT Hip Neck: [BMD (g/cm2):0.833] [T-Score:-1.5] [Z-Score:0.4] RT Hip Total: [BMD (g/cm2):0.684] [T-score:-2.6] [Z-Score:-0.9] [BMD Previous:0.659] [BMD % Change:3.8] *Indicates significant change from prior examination based on 95% confidence level. World Health Organization criteria for BMD interpretation classify patients as Normal (T-score at or above -1.0), Osteopenic (T-score between -1.0 and -2.5) or Osteoporotic (T-score at or below -2.5). LIMITATIONS AND MODIFICATION: The left hip was not evaluated secondary to prior fracture. Significant curvature of the spine is noted with associated significant degenerative changes. IMPRESSION: 1. Osteoporosis. 2. Bone mineral density within the lumbar spine has significantly increased since the prior examination, though much of this apparent increase is likely artifactual secondary to advanced degenerative changes and underlying scoliosis. Bone mineral density within the right hip has not significantly changed since the prior exam. 3. See below National Osteoporosis Foundation guidelines on when to potentially initiate pharmacologic therapy. Based on the National Osteoporosis Foundation Guidelines, pharmacologic treatment should be initiated in any of the following, unless clinical conditions suggest otherwise: * Any patient with prior fragility fracture of the hip or vertebrae. A spine fracture indicates 5X risk for subsequent spine fracture and 2X risk for subsequent hip fracture. * Osteoporosis (T-score <-2.5). * Postmenopausal women and men age 50 and older with low bone mass/osteopenia (T-score between -1.0 and -2.5) by DXA and 10-year major osteoporotic fracture greater than 20% or a 10-year probability of hip fracture greater than 3%. These fracture risks are supplied above in the FRAX score, if applicable. * Clinician judgement and/or patient preferences may indicate treatment for people with 10-year fracture probabilities above or below these levels. Dictated by: Dictated on workstation # [id number]
== END ==
LOC: RAD 11:30
PROVIDERS: ATTEND Internal Medicine Endocrinology, Diabetes & Metabolism
DX: M81.0 Age-related osteoporosis without current pathological fracture (principal); Z78.0 Asymptomatic menopausal state
CPT/HCPCS: 77080

== ENCOUNTER → 2023-01-08 | Outpatient (CLI) | payer MEDICARE, MEDICAID ==
[~2023-01-08] MED LIST changes: +CATHETER FLUSH 10 ML SYR IV PRN; +IOHEXOL 350 MG/ML 100 ML (OMNIPAQUE 350) VIAL IV ONE; +NS 100 ML (IVPB) BAG IV ONE
--- NOTE | 2023-01-08 16:29 | Diagnostic Imaging Report ---
EXAMINATION: CT chest with intravenous contrast. TECHNIQUE: Multiple contiguous axial images were obtained through the chest after the uneventful administration of intravenous contrast. All CT scans use one or more of the following dose optimizing techniques: Automated exposure control, MA and/or KvP adjustment based on patient size and exam type or iterative reconstruction. HISTORY: Abnormal stress test. Follow-up lung nodule. COMPARISON: Chest radiograph on 11/17/2022. FINDINGS: The heart size is within normal limits. No pericardial effusion is present. Mildly prominent lymph nodes are seen in the superior mediastinum. There are also mildly prominent lymph nodes in the posterior mediastinum and retroperitoneum. A nodule is seen in the right upper lobe measuring 0.4 cm. A ground-glass nodule is seen in the left upper lobe measuring 1.2 cm. Subsegmental atelectasis is seen in the lingula. There are no focal areas of consolidation. No central endobronchial obstructing lesions are identified. There is no pleural effusion or pneumothorax. The osseous structures demonstrate no acute abnormalities. S-shaped scoliosis of the thoracolumbar spine is seen. Limited views of the upper abdominal structures demonstrate no acute abnormalities. Both adrenal glands are unremarkable. IMPRESSION: 1. Ground-glass nodule in the left upper lobe measuring 1.2 cm. A more solid nodule is seen in the right upper lobe measuring 0.4 cm. Recommend follow-up chest CT in 3-6 months to ensure stability or resolution. 2. Mildly prominent lymph nodes in the mediastinum and retroperitoneum in the upper abdomen. These are favored to be reactive. Recommend attention on follow-up. Dictated by: Dictated on workstation # [id number]
== END ==
LOC: RAD 12:15
PROVIDERS: ATTEND Internal Medicine
DX: R91.8 Other nonspecific abnormal finding of lung field (principal); R93.89 Abnormal findings on diagnostic imaging of other specified body structures
CPT/HCPCS: 71260

== ENCOUNTER → 2023-07-21 | Outpatient (CLI) | payer MEDICARE, MEDICAID ==
[~2023-07-21] MED LIST changes: +HOLD METFORMIN - RECEIVED CONTRAST 20 ML VIAL IV SCH
[2023-07-21 10:28] LABS: CREATININE SERUM 0.84 MG/DL (0.60-1.30)
--- NOTE | 2023-07-21 11:48 | Diagnostic Imaging Report ---
EXAMINATION: CT chest, abdomen and pelvis with intravenous contrast. TECHNIQUE: Multiple contiguous axial images were obtained through the chest, abdomen and pelvis after the uneventful administration of intravenous contrast. All CT scans use one or more of the following dose optimizing techniques: automated exposure control, MA and/or KvP adjustment based on patient size and exam type or iterative reconstruction. HISTORY: Right upper quadrant pain and lung nodule. COMPARISON: 01/08/2023 FINDINGS: There is no edema or pneumonia. No pleural effusion. No pneumothorax. A groundglass nodule in the left apex measures 1.2 cm, previously 1.2 cm. A second left upper lobe groundglass nodule measures 0.6 cm and is also unchanged. There is mild atelectasis in the lingula. A 4 mm right upper lobe nodule is unchanged. There is no axillary or supraclavicular lymphadenopathy. There are enlarged posterior mediastinal lymph nodes measuring up to 1.3 cm in short axis, unchanged from prior exam. Heart size is normal. There are mild coronary artery calcifications. No pericardial effusion. Aorta is normal in caliber. There is a cyst in the liver. No suspicious liver lesion. There is no biliary ductal dilation. Gallbladder is normal. Pancreas is normal. Spleen is normal. Adrenal glands are normal. The kidneys are normal. There is no hydronephrosis. Urinary bladder is normal. Bowel is normal in caliber without obstruction or inflammation. No free fluid or air. There are enlarged retroperitoneal lymph nodes measuring up to 1.0 cm. There are enlarged lymph nodes in the right iliac chain measuring up to 1.3 cm. There are enlarged groin lymph nodes measuring up to 1.2 cm bilaterally. There are left-sided common iliac chain lymph nodes that are enlarged measuring up to 1.4 cm. Aorta is normal in caliber without aneurysm. There are no suspicious osseus lesions. IMPRESSION: 1. Lymphadenopathy in the posterior mediastinum and abdomen and pelvis including both groins. The lymphadenopathy within the [id number] on the prior exam is unchanged. Findings concerning for a hematologic malignancy such as lymphoma. 2. Unchanged scattered groundglass nodules. Dictated by: Dictated on workstation # [id number]
== END ==
LOC: RAD 09:45
PROVIDERS: ATTEND Family Medicine
DX: R59.1 Generalized enlarged lymph nodes (principal); K21.00 Gastro-esophageal reflux disease with esophagitis, without bleeding; R91.1 Solitary pulmonary nodule
CPT/HCPCS: 36415; 71260; 74177; 82565; 84520

== ENCOUNTER → 2023-10-14 | Outpatient (CLI) | payer MEDICARE ==
[~2023-10-14] MED LIST changes: -CATHETER FLUSH 10 ML SYR IV PRN; -HOLD METFORMIN - RECEIVED CONTRAST 20 ML VIAL IV SCH; -IOHEXOL 350 MG/ML 100 ML (OMNIPAQUE 350) VIAL IV ONE; -NS 100 ML (IVPB) BAG IV ONE
--- NOTE | 2023-10-14 09:42 | Diagnostic Imaging Report ---
INDICATION: Routine screening. COMPARISON: 10/13/2022 and 10/10/2019. TECHNIQUE: 2D and 3D bilateral screening mammography was performed with CAD. FINDINGS: Both breasts are heterogeneously dense, limiting the sensitivity of mammography. The parenchymal pattern pattern is stable. No mass or malignant-appearing microcalcifications are identified. The axillae are unremarkable. IMPRESSION: No mammographic features suspicious for malignancy are identified. ACR BI-RADS Category 1: Negative. Result letter will be mailed to the patient. Note: At least 10% of breast cancer is not imaged by mammography. Dictated by: Dictated on workstation # [id number]
== END ==
LOC: RAD 07:12
PROVIDERS: ATTEND Family Medicine
DX: Z12.31 Encounter for screening mammogram for malignant neoplasm of breast (principal)
CPT/HCPCS: 77063; 77067